=== PATIENT | male | born 1940 | race Caucasian/White ===

== ENCOUNTER 2020-09-15 08:36 | Outpatient (REF) | payer MEDICARE, BC, SELFPAY ==
[2020-09-17 09:02] LABS: HCT 46.8 % (40.0-50.0); HGB 15.2 g/dL (13.5-17.5); MCH 31.7 pg (27.0-33.0); MCHC 32.5 % (32.0-36.0); MCV 97.7 fL (80-95); RBC 4.79 10^6/uL (4.36-5.78); RDW-SD 45.7 fL; WBC 7.86 10^3/uL (4.4-10.8)
[2020-09-17 09:03] LABS: Absolute Basophil Count 0.08 10^3/uL (0.0-0.2); Absolute Eosinophil Count 0.26 10^3/uL (0.0-0.7); Absolute Monocyte Count 0.72 10^3/uL (0.1-0.8); Absolute Neutrophil Count 4.71 10^3/uL (1.2-6.7); Eosinophils % 3.3; Immature Grans % 0.1; MPV 11.8 fL (8.0-11.0); Monocytes % 9.2; Neutrophils % 59.9; Nucleated RBC 0 %; Platelet Count 221 10^3/uL (130-400); RDW 12.7 % (11.8-14.1)
[2020-09-17 09:05] LABS: Abs Immature Grans 0.01 10^3/uL (0.0-0.06); Absolute Lymphocyte Count 2.08 10^3/uL (1.2-3.4); Lymphocytes % 26.5
[2020-09-17 09:06] LABS: RBC Morphology Normal
[2020-09-17 09:07] LABS: Alkaline Phosphatase 96 U/L (46-116); BUN 19 mg/dL (7-18); Bilirubin, Total 1.4 mg/dL (0.2-1.0); CREATININE 1.2 mg/dL (0.70-1.30); Estimated GFR 57.96 (mL/min/1.73m2); Glucose 84 mg/dL (74-106); Sodium 146 mmol/L (136-145); Total Protein 7.8 g/dL (6.4-8.2)
[2020-09-17 09:08] LABS: ALT 17 U/L (16-63); AST 21 U/L (15-37); Anion Gap 10.6 mmol/L (3-11); CO2 28.4 mmol/L (21.0-32.0); Chloride 107 mmol/L (98-107); Potassium 4.2 mmol/L (3.5-5.1); TSH (W/Ref FT4) 1.27 uIU/mL (0.36-3.74); Vitamin B12 101 pg/mL (193-986)
== END 2020-09-15 08:37 | disposition home or self-care (01) ==
LOC: NCHCN 08:36
PROVIDERS: PCP Internal Medicine; Visit Provider Internal Medicine
DX: R63.4 Abnormal weight loss (principal); E78.5 Hyperlipidemia, unspecified; I48.91 Unspecified atrial fibrillation; E53.8 Deficiency of other specified B group vitamins
CPT/HCPCS: 80053; 82607; 84443; 85025

== ENCOUNTER 2021-09-21 17:15 | Outpatient (REF) | payer MEDICARE, BC, SELFPAY ==
--- OUTSIDE RECORDS SUMMARY | 2021-09-21 17:21 | XMS_ITS | Encounter Summary ---
:1940 Author Organization [facility] Address [address] [place] [address] Care Team Providers Name Role Phone Unavailable Primary Care Provider Unavailable Encounter Details Date Type Department Care Team Description 02/14/2004 Hospital Encounter [facility]- Danyelle Villa MD [id number] [place] [address] [id number] [phone] Social History Tobacco Use Types Packs/Day Years Used Date Never Assessed Sex Assigned at Date Recorded Not on file documented as of this encounter Discharge Disposition Disposition Code Departure Means Destination Auto Discharge documented in this encounter Plan of Treatment Not on filedocumented as of this encounter Procedures Procedure Name Priority Date/Time Associated Diagnosis Comme nts CT ABDOMEN, PELVIS Routine 02/14/2004 16:49 Resul ts for this W CONTRAST EDT procedure are i n the results section. documented in this encounter Results CT ABDOMEN, PELVIS W CONTRAST (02/14/2004 16:49 EDT) Anatomical Region Laterality Modality Other Specimen Impressions [facility] - 01/15/2009 16 :34 EDT IMPRESSION: 1. 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 Appearance is unchan ged from December 2002. 2. There is mild circumferential thicken ing of the distal esophagus with a small hiatal hernia. Clinically correlate. 4. Atelectasis at both lung bases. 5. Appearance of the liver, unchanged. 6. Not mentioned above, arteriosclerosis . 7. Left colostomy with changes as noted above. /becky Narrative [facility] - 01/15/2009 16 :34 EDT ABD/PELVIC CT- H/O IMPERFORATE ANUS, BLIND LOOP OF RECTOSIGMOID INSITU R/O INTRALUMINAL COLLECTION, BLIND LOOP ([facility]) CT ABDOMEN & PELVIS: 02/14/04 CLINICAL HISTORY: History of imperforate anus, blind loop of rectosigmoid, follow-up. COMPARISON: 12/14/02. Abdomen and pelvis without rectal contra st TECHNIQUE ABDOMEN: Prior to the examination, the patient wa s given oral contrast. During the intravenous administration of 150 cc of 300 mg% nonionic contrast at a rate of 2 cc/second, helical images were obtained from the domes of the diaphragms to the iliac crests. TECHNIQUE PELVIS: Immediately after the above preparation, axial images were obtained from the iliac crests to the ischial tub erosities. Delayed images were obtained through the pelvis. FINDINGS: There is atelectasis at both lung bases. Ground-glass opacities are also seen at both lung bases. The inferi or heart and pericardium are unremarkable. There is circumferential t hickening of the distal esophagus with a small hiatal hernia. Th e stomach is incompletely distended. No new liver lesions are seen. There is minimal intrahepatic biliary dilatation of the left biliary tree, whi ch is stable. The spleen, pancreas, gallbladder, adrenal glands, a nd kidneys are unremarkable. There is no free fluid, free intraperito miller air, lymphadenopathy, or abscess. A left-sided colostomy is present. Immed iately adjacent to the colostomy, on images 104 through 110, th ere is triangular-shaped soft tissue with an adjacent diverticulum. Th is could represent an undistended segment of bowel. The appear ance is new from the last exam, but is not worrisome for diverticu litis. Again seen is a blind segment of rectosi gmoid colon, which appears adhered to the anterior abdominal wall, as before. There is high attenuation within this colon, in an josué earance which is stable from before and completely unchanged on delay ed images. This suggests that this is remote contrast, probably inspis sated from an old study. I see no evidence of fistula. Some irregul arity of the perirectal fat is stable from before. The remainder of the bowel is unremarkable. There is no evidence of obstruction. A n ormal appendix is seen. There are prostatic calcifications. The urinary bladder is within normal limits. There are mild degenerative changes of t he spine. Procedure Note Kiana Wilder MD - 01/15/2009 ABD/PELVIC CT- H/O IMPERFORATE ANUS, BLI ND LOOP OF RECTOSIGMOID INSITU R/O INTRALUMINAL COLLECTION, BLIND LOOP ([facility]) CT ABDOMEN & PELVIS: 02/14/04 CLINICAL HISTORY: History of imperforate anus, blind loop of rectosigmoid, follow-up. COMPARISON: 12/14/02. Abdomen and pelvis without rectal contra st TECHNIQUE ABDOMEN: Prior to the examination, the patient wa s given oral contrast. During the intravenous administration of 150 cc of 300 mg% nonionic contrast at a rate of 2 cc/second, helical images were obtained from the domes of the diaphragms to the iliac crests. TECHNIQUE PELVIS: Immediately after the above preparation, axial images were obtained from the iliac crests to the ischial tub erosities. Delayed images were obtained through the pelvis. FINDINGS: There is atelectasis at both lung bases. Ground-glass opacities are also seen at both lung bases. The inferi or heart and pericardium are unremarkable. There is circumferential t hickening of the distal esophagus with a small hiatal hernia. Th e stomach is incompletely distended. No new liver lesions are seen. There is minimal intrahepatic biliary dilatation of the left biliary tree, whi ch is stable. The spleen, pancreas, gallbladder, adrenal glands, a nd kidneys are unremarkable. There is no free fluid, free intraperito miller air, lymphadenopathy, or abscess. A left-sided colostomy is present. Immed iately adjacent to the colostomy, on images 104 through 110, th ere is triangular-shaped soft tissue with an adjacent diverticulum. Th is could represent an undistended segment of bowel. The appear ance is new from the last exam, but is not worrisome for diverticu litis. Again seen is a blind segment of rectosi gmoid colon, which appears adhered to the anterior abdominal wall, as before. There is high attenuation within this colon, in an josué earance which is stable from before and completely unchanged on delay ed images. This suggests that this is remote contrast, probably inspis sated from an old study. I see no evidence of fistula. Some irregul arity of the perirectal fat is stable from before. The remainder of the bowel is unremarkable. There is no evidence of obstruction. A n ormal appendix is seen. There are prostatic calcifications. The urinary bladder is within normal limits. There are mild degenerative changes of t he spine. IMPRESSION IMPRESSION: 1. 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 Appearance is unchan ged from December 2002. 2. There is mild circumferential thicken ing of the distal esophagus with a small hiatal hernia. Clinically correlate. 4. Atelectasis at both lung bases. 5. Appearance of the liver, unchanged. 6. Not mentioned above, arteriosclerosis . 7. Left colostomy with changes as noted above. /becky Performing Organization Address City/State/ZIP Code Phon e Number [facility] [address] [place] [address] [facility] [address] [place], [place] [address] documented in this encounter Visit Diagnoses Not on filedocumented in this encounter
--- OUTSIDE RECORDS SUMMARY | 2021-09-21 17:21 | XMS_ITS | Encounter Summary ---
:1940 Author Organization [facility] Address [address] [place] [address] Care Team Providers Name Role Phone London Haywood MD Primary Care Provider Reason for Visit Reason Onset Date Comments Appointment Related 01/10/2018 Encounter Details Date Type Department Care Team Description 01/10/2018 Telephone [facility] Adult Sebastian Oneal, Appointment Related Neurology - Main [place] [facility] [address] [facility] [address] [place], [place] [id number] [place] [address] [phone] (Wo rk) Social History Tobacco Use Types Packs/Day Years Used Date Former Smoker Cigars Quit: 05/16/18 73 Smokeless Tobacco: Never Used Alcohol Use Standard Drinks/Week Comments Yes 0 (1 standard drink = 0.6 oz pure alcoho l) occ beer Alcohol Habits Answer Date Recorded How often do you have a drink containing alcohol? Not asked How many drinks containing alcohol do you have on a typical Not asked day when you are drinking? How often do you have six or more drinks on one occasion? No t asked Comment: occ beer 08/04/2010 Sex Assigned at Date Recorded Not on file documented as of this encounter Miscellaneous Notes Telephone Encounter - Jared Boss - 01/10/2018 1101 EDT Scheduled NPV with Dr Oneal 01/19/18 at 10:00am. Amanda will notify patient. Letter sent. documented in this encounter Plan of Treatment Not on filedocumented as of this encounter Visit Diagnoses Not on filedocumented in this encounter Care Teams Locomotive Crane Operator Relationship Specialty Start Date End Date Adonis Haywood MD PCP - General 04/02/[address] [place] [address] documented as of this encounter
--- OUTSIDE RECORDS SUMMARY | 2021-09-21 17:21 | XMS_ITS | Encounter Summary ---
:1940 Author Organization [facility] Address [address] [place] [address] Care Team Providers Name Role Phone London Haywood MD Primary Care Provider Encounter Details Date Type Department Care Team Description 04/14/2009 Hospital Encounter [facility]- Danyelle Villa MD [address] [id number] [phone] Social History Tobacco Use Types Packs/Day Years Used Date Never Assessed Sex Assigned at Date Recorded Not on file documented as of this encounter Discharge Disposition Disposition Code Departure Means Destination Auto Discharge Home documented in this encounter Plan of Treatment Not on filedocumented as of this encounter Visit Diagnoses Not on filedocumented in this encounter Care Teams Assistive Technology Trainer Relationship Specialty Start Date End Date Adonis Haywood MD PCP - General 04/02/[address] [place] [address] documented as of this encounter
--- OUTSIDE RECORDS SUMMARY | 2021-09-21 17:21 | XMS_ITS | Encounter Summary ---
:1940 Author Organization [facility] Address [address] [place] [address] Care Team Providers Name Role Phone London Haywood MD Primary Care Provider Reason for Visit Reason Comments New Patient Visit Stroke Referral (Routine) - Authorization Not Required Specialty Diagnoses / Procedures Referred By Contact Refer red To Contact Neurology Diagnoses Stroke ([facility]) ([facility]) Gordo Barreto MD [place], Ajay M, SARIAHBS [address] [phone] Fax: Referral ID Status Reason Start Expiration Visits Visits Date Date Requested Authorized [id number] Authorization Not 1 1 Required Encounter Details Date Type Department Care Team Description 02/02/2018 Office Visit [facility] Sebastian [facility]al [facility] - , [facility] ischemic attack) Main [place] [address] [facility] (Primary Dx) [address] [place] [phone] Social History Tobacco Use Types Packs/Day Years [...] on file documented as of this encounter Last Filed Vital Signs Vital Sign Reading Time Taken Comments Blood Pressure 122/80 02/02/2018 0957 EDT Pulse 59 02/02/2018 0957 EDT Temperature - - Respiratory Rate 12 02/02/2018 0957 EDT Oxygen Saturation 99% 02/02/2018 0957 EDT Inhaled Oxygen Concentration - - Weight 78.9 kg (174 lb) 02/02/2018 0957 EDT Height 190.5 cm (6' 3) 02/02/2018 0957 EDT Body Mass Index 21.75 02/02/2018 0957 EDT documented in this encounter Discharge Diagnoses Diagnosis G45.9 Transient cerebral ischemic attack , unspecified-G45.9[ICD-10-CM] documented in this encounter Discharge Disposition Disposition Code Departure Means Destination Auto Discharge documented in this encounter Progress Notes Sebastian Oneal MD - 02/02/2018 1000 EDT [facility] Stroke Program New Patient Consultation Patient Name: Reece Garcia : 1940 Age: 77 y.o. Primary Care Provider: Adonis Haywood Date of Service: 02/02/2018 Chief Complaint - Chief Complaint Patient presents with ??? New Patient Visit Stroke Dear Dr.Brendan oLndon Haywood I had the pleasure of seeing Reece Garcia today in the stroke prevention clinic for your referral regarding evaluation of TIA's and need for further intervention of the left MCA narrowing. As you know he is a 77 y.o. man with history of Xeralto for A.fib (approximately in 2012), was initially placedon warfarin and later changed to Xeralto given amount of blood work needed with warfarin. He is here along with his Kaylin, in 2012 he was talking to somebody on the phone and had a funny feeling, may have had trouble with words, was taken to [facility]. At that time he was noted to be in A.fib, has seen . He had MRI of the brain apparently showed few embolic appearing strokes, he did not have any focal symptoms at that time. He describes ' as one side of the head felt different. Word finding difficulty may have lasted an hour. He had second episode, may be a year or two later when he was in the meeting chairing the education board, he felt different wand stood up andwas unable to bring the words out, high school librarian called the ambulance. Episode lasted about an hour or so. It has been long unable to clearly recall the entire episode. He describes every once in a while he describes a feeling come over me, then feels my voice seems different, he lies flat and symptoms go away. Sometimes, he feels that has a gas in the system that's out through the colostomy and then it goes away. Denies any tingling and number. At this time he has trouble getting the words out and then goes away within 5 or 10 minutes. Now its happening once a day or so. It's more towards the supper time or latter in the day. Reports no major memory issues, always reading, driving no issues, no issues with directions, no specific memory issues. Risk Factors for stroke: A.fib Review of Systems: General: no fever, no chills, appetite not decreased, no fatigue, no insomnia and no recent weight change. ENT: no earache, no tinnitus, no difficulty swallowing. Eyes: no blurred vision, no double vision, no loss of vision, no partial visual field loss, no lightsensitivity . Cardiovascular: no chest pain, no palpitations, no fainting, no shortness of breath . Respiratory: no cough, no wheezing. Skin: no unexplained rashes GI: no nausea, no vomiting, no diarrhea, no change in bowel habits, no constipation, no abdominal pain, no bloody or black stools. : no painful urination, no blood in urine, no change in urinary frequency, no loss of bladder control. Musculoskeletal: no muscle cramps, no joint stiffness, no muscle weakness other than what is described above. Neurological: no headache, no weakness other than what is described above, no numbness other than what is described above, Psychiatric: no depression, no anxiety, no paranoid ideations, no hallucinations, no panic attacks, no irritability. Endocrine: not intolerant to cold, not intolerant to heat, Heme/Lymphatic: no tendency for easy bruising, no bleeding Past Medical History: Diagnosis Date ??? GERD (gastroesophageal reflux disease) Past Surgical History: Past Surgical History: Procedure Laterality Date ??? APPENDECTOMY ??? BLADDER SURGERY surgery at 8 yrs old ??? COLON SURGERY colostomy dosen't use bag long story Allergies: No Known Allergies Social history: Social History Social History ??? Marital status: Spouse name: N/A ??? Number of children: N/A ??? Years of education: N/A Occupational History ??? [employer] Social History Main Topics ??? Smoking status: Former Smoker Types: Cigars Quit date: 05/16/1974 ??? Smokeless tobacco: Never Used ??? Alcohol use Yes Comment: occ beer ??? Drug use: No ??? Sexual activity: Not on file Other Topics Concern ??? Not on file Social History Narrative Family history: Family History Problem Relation Age of Onset ??? Allergic Rhinitis Neg Hx ??? Migraines Neg Hx ??? Thyroid Disease Neg Hx Reports heart problems in the family, with heart attack. Physical Examination: Vitals: BP 122/80 (BP Cuff Location: Right arm, Patient Position: Sitting, BP Cuff Sizes: Adult, regular) Pulse 59 Resp 12 Ht (!) 190.5 cm (75) Wt 78.9 kg (174 lb) SpO2 99% BMI 21.75 kg/m2 General appearance: alert, cooperative, no distress Head: Normocephalic, without obvious abnormality, atraumatic Eyes: conjunctivae/corneas clear. PERRL, EOM's intact. Throat/Mouth: lips, mucosa, and tongue normal Neck: supple, symmetrical, trachea midline, no carotid bruit Lungs: clear to auscultation bilaterally Heart: regular rate and rhythm, S1, S2 normal, no murmur Abdomen: soft, non-tender; bowel sounds normal; no masses, no organomegaly Extremities: extremities warm, atraumatic, no cyanosis or edema Neurological Examination: Mental status:. The patient's orientation, memory, attention, language and fund of knowledge were normal. Cranial nerve II: Visual marks were with in normal limits to confrontation. Cranial nerves III, IV, and : the oculomotor, trochlear and abducens nerve were intact. Cranial nerve V: facial sensation was normal to light touch and temperature. Masticatory muscle bulkand strength was normal. Cranial nerve VII: no facial nerve palsy was noted. Cranial nerve VIII: hearing was grossly intact to finger run at 6 inches bilaterally. Cranial nerves IX and X: there was normal movement of the soft palate. Cranial nerve XI: shoulder shrug was intact bilaterally. Cranial nerve XII: there was no tongue deviation with protrusion. Motor Strength & Tone: Strength was 5/5 in upper and lower extremities, both proximally and distally. Patient exhibits normal motor tone. Muscle bulk was normal throughout. Involuntary Movements: No involuntary movements were seen. Sensory: Light touch and temperature sensation was within normal limits throughout. Reflexes: Biceps: right 2+, left 2+. Triceps: right 2+, left 2+. Brachioradialis: right 2+, left 2+. Patella: right 2+, left 2+. Ankle Jerk: right 1+, left 1+. Plantar response was flexor bilaterally. Coordination: Coordination was normal, including finger to nose and heel-bailey testing. Gait: The gait and station were normal. Romberg was negative. Diagnostic and Imaging Data: 1. Brain imagin. CTA Head and Neck: 3. Echocardiogram: EF LA size: PFO: 4. LDL ASSESSMENT: RECOMMENDATIONS: 1. Continue Aspirin 81 mg daily. 2. Continue high dose statin. 3. Target HbA1c is less than 6.5, strict glycemic control. 4. Target LDL is less than 70 mg/dl. 5. Target BP goal is less than 130/80 mm of Hg. 6. More than 45 minutes of this 60 minute face to face visit was spent discussing stroke symptoms, etiology, prevention, and management of stroke, including the importance of risk factor modification including optimal management of hypertension, DM, cholesterol, smoking cessation, healthy diet and exercise, counseling and coordination of care as detailed above. Thank you for involving me in care of Reece Garcia. Please feel free to contact the office with any questions or concerns. Sebastian Oneal M.D. Attending, Stroke Program [facility] Incomplete documented in this encounter Plan of Treatment Not on filedocumented as of this encounter Visit Diagnoses Diagnosis TIA (transient ischemic attack) - Primar y Unspecified transient cerebral ischemia documented in this encounter Historical Medications This list may reflect changes made after this encounter. Medication Sig Dispensed Refills Start Date End Date atorvastatin (LIPITOR) 20 Take 20 mg by mouth 0 mg tabletIndications: daily. taking 1/2 pill each day added in this encounter Care Teams Paper Finisher Relationship Specialty Start Date End Date Adonis Haywood MD PCP - General 04/02/[address] [place] [address] documented as of this encounter
--- OUTSIDE RECORDS SUMMARY | 2021-09-21 17:21 | XMS_ITS | Encounter Summary ---
:1940 Author Organization [facility] Address [address] [place] [address] Care Team Providers Name Role Phone London Haywood MD Primary Care Provider Reason for Visit Reason Comments Atrial Fibrillation Encounter Details Date Type Department Care Team Description 06/18/2013 Office Visit [facility] [place] Griffin Hair, Atrial fibrillation Cardiology - Jairo HOWARD ([facility]) (Primary Dx) [address] [place], [place] [address] [place] [address] [place] [address] Social History Tobacco Use Types Packs/Day Years [...] Sign Reading Time Taken Comments Blood Pressure 120/76 06/18/2013 1610 EST Pulse 76 06/18/2013 1610 EST Temperature - - Respiratory Rate - - Oxygen Saturation - - Inhaled Oxygen Concentration - - Weight 95.3 kg (210 lb) 06/18/2013 1610 EST Height 190.5 cm (6' 3) 06/18/2013 1610 EST Body Mass Index 26.25 06/18/2013 1610 EST documented in this encounter Discharge Diagnoses Diagnosis 427.31 ATRIAL FIBRILLATION[ICD-9-CM] documented in this encounter Discharge Disposition Disposition Code Departure Means Destination Auto Discharge documented in this encounter Progress Notes Griffin Hair MD - 06/18/2013 1700 EST Subjective: Patient ID: Reece Garcia is an 72 y.o. male. Chief Complaint Patient presents with ??? Atrial Fibrillation HPI Mr. Garcia is a pleasant 72 year old man who developed an unusual sensation last summer. He eventually went to the [facility] ED and was found to be in AF. He was told he had a small stroke. He was placed on anticoagulants. An echocardiogram was performed which showed preserved LV function and no significant valvular abnormalities. Because of the patient's body habitus he was recommended tohave a diagnostic polysomnogram. He decided to not pursue that. Mr. Garcia was seen in consultation by Dr. Jeevan Monsalve. Dr. Monsalve recommended that Mr. Garcia undergo a diagnostic polysomnogram and consider an elective cardioversion. Mr. Garcia asked for a second opinion and is now referred to the office. Mr. Garcia has no history of valvular heart disease, hypertension, diabetes, congestive heart failure or alcohol over use. He does not have known disordered breathing during sleep. He claims not to suffer from daytime hypersomnolence. Family history is negative for premature coronary disease. A brother does have AF. Patient Active Problem List Diagnosis ??? Gastroesophageal reflux disease Past Medical History Diagnosis Date ??? GERD (gastroesophageal reflux disease) Past Surgical History Procedure Laterality Date ??? Appendectomy ??? Bladder surgery surgery at 8 yrs old ??? Colon surgery colostomy dosen't use bag long story Family History Problem Relation Age of Onset ??? Allergic Rhinitis Neg Hx ??? Migraines Neg Hx ??? Thyroid Disease Neg Hx Social History Social History ??? Marital Status: Spouse Name: N/A Number of Children: N/A ??? Years of Education: N/A Occupational History ??? [employer] Social History Main Topics ??? Smoking status: Former Smoker Types: Cigars Quit date: 05/16/1974 ??? Smokeless tobacco: Never Used ??? Alcohol Use: Yes Comment: occ beer ??? Drug Use: No ??? Sexually Active: Not on file Other Topics Concern ??? Not on file Social History Narrative ??? No narrative on file No current outpatient prescriptions on file prior to visit. No current facility-administered medications on file prior to visit. No Known Allergies Review of Systems Constitutional: Negative for weight loss and malaise/fatigue. Eyes: Negative for blurred vision and double vision. Respiratory: Negative for cough, hemoptysis, shortness of breath and wheezing. Cardiovascular: Negative for chest pain, palpitations, orthopnea, claudication, leg swelling and PND. Gastrointestinal: Negative for heartburn, nausea, vomiting, abdominal pain, diarrhea and blood in stool. Colostomy in the left lower quadrant Genitourinary: Negative for dysuria, frequency and hematuria. Musculoskeletal: Positive for joint pain. Negative for myalgias and falls. Skin: Negative for rash. Neurological: Negative for weakness and headaches. Grossly normal neurologic exam for coordination and strength. Endo/Heme/Allergies: Does not bruise/bleed easily. - See HPI Objective: BP 120/76 Pulse 76 Ht 190.5 cm (75) Wt 95.255 kg (210 lb) BMI 26.25 kg/m2 Physical Exam Constitutional: He is oriented to person, place, and time. He appears well- developed and well-nourished. HENT: Head: Normocephalic and atraumatic. Eyes: Conjunctivae are normal. Pupils are equal, round, and reactive to light. Neck: Normal range of motion. Neck supple. No JVD present. No thyromegaly present. Cardiovascular: Normal rate, S1 normal, S2 normal and intact distal pulses. An irregularly irregular rhythm present. Pulmonary/Chest: Effort normal and breath sounds normal. Abdominal: Soft. Bowel sounds are normal. Colostomy in left lower quadrant (he does not require a pouch as he can feel the urge to move his bowels and goes to the bathroom). Musculoskeletal: Normal range of motion. He exhibits no edema. Neurological: He is alert and oriented to person, place, and time. Grossly normal neurologic exam Skin: Skin is warm and dry. Psychiatric: His behavior is normal. Records from Drs. Haywood and Gricel: reviewed. Assessment/Plan: In summary, Mr. Garcia has minimally symptomatic AF. His AF has been observed in the setting of normal LV systolic function and no significant valvular abnormalities. His ventricular rate is well controlled off drug therapy. He has been anticoagulated. I diagnostic polysomnogram was recommended but the patient did not follow through. I would agree with all of the recommendations and care that Mr. Garcia has received to date. Mr. Garcia has atrial fibrillation. By his account he had a small stroke. On that basis I would recommend lifelong anticoagulation. Rivaroxaban is a reasonable choice for long-term anticoagulation. His CHADS-VAS score is 3. I have recommended to Mr. Garcia that he undergo an elective cardioversion. If he feels better after her cardioversion then I would pursue a strategy of rhythm control. If on the other hand he feels exactly the same then I would not attempt to reestablish sinus rhythm and pursue a strategy of rate control only. Plans: Continue Rivaroxaban indefinitely I have recommended elective cardioversion when convenient for the patient. He will think about It an probably pursue at [facility]. Followup with Drs. Haywood and Gricel. documented in this encounter Plan of Treatment Not on filedocumented as of this encounter Visit Diagnoses Diagnosis Atrial fibrillation (HCC-CMS) (HCC) - Pr imary Atrial fibrillation documented in this encounter Discontinued Medications Medication Sig Discontinue Reason Start Date End Date omeprazole (PRILOSEC) 20 Take 20 mg by mouth Error 06/18/2013 mg capsule daily. documented as of this encounter Historical Medications This list may reflect changes made after this encounter. Medication Sig Dispensed Refills Start Date End Date loratadine (CLARITIN) 10 mg Take 10 mg by mouth 0 tablet daily. Acetaminophen (TYLENOL) 325 Take 650 mg by mouth 0 mg tablet every 4 hours as needed for Pain. rivaroxaban (XARELTO) 20 mg Take 20 mg by mouth 0 tablet tablet daily with dinner. added in this encounter Care Teams Electronics Lead Relationship Specialty Start Date End Date Adonis Haywood MD PCP - General 04/02/[address] [place] [address] documented as of this encounter
--- OUTSIDE RECORDS SUMMARY | 2021-09-21 17:21 | XMS_ITS | Clinical Summary ---
:1940 Author Organization [facility] Address [address] [place] [address] Care Team Providers Name Role Phone London Haywood MD Primary Care Provider Allergies No known active allergies Medications Medication Sig Dispensed Refills Start Date End Date Status rivaroxaban (XARELTO) 20 Take 20 mg by 0 Active mg tablet tablet mouth daily with dinner. Acetaminophen (TYLENOL) Take 650 mg by 0 Active 325 mg tablet mouth every 4 hours as needed for Pain. loratadine (CLARITIN) 10 Take 10 mg by 0 Active mg tablet mouth daily. atorvastatin (LIPITOR) Take 20 mg by 0 Active 20 mg tabletIndications: mouth daily. taking 1/2 pill each day Active Problems Problem Noted Date Atrial fibrillation ([facility]) 06/18/2013 Gastroesophageal reflux disease Surgical History Surgery Date Site/Laterality Comments APPENDECTOMY BLADDER SURGERY surgery at 8 yr s old COLON SURGERY colostomy dosen' t use bag long story Medical History Medical History Date Comments GERD (gastroesophageal reflux disease) Family History Medical History Relation Name Comments Allergic Rhinitis Neg Hx Migraines Neg Hx Thyroid Disease Neg Hx Social History Tobacco Use Types Packs/Day Years [...] Assigned at Date Recorded Not on file Last Filed Vital Signs Vital Sign Reading Time Taken Comments Blood Pressure 122/80 02/02/2018 0957 EDT Pulse 59 02/02/2018 0957 EDT Temperature 36.3 ??C (97.3 ??F) 08/04/2010 0822 EDT Respiratory Rate 12 02/02/201857 EDT Oxygen Saturation 99% 02/02/2018 0957 EDT Inhaled Oxygen Concentration - - Weight 78.9 kg (174 lb) 02/02/2018956 EDT Height 190.5 cm (6' 3) 02/02/2018 09 EDT Body Mass Index 21.75 02/02/2018 0957 EDT Plan of Treatment Health Maintenance Due Date Last Done Comments Fall Risk Screening 09/11/2003 Care Teams Stitcher Standard Machine Relationship Specialty Start Date End Date Adonis Haywood MD PCP - General 04/02/[address] [place] [address]
--- OUTSIDE RECORDS SUMMARY | 2021-09-21 17:21 | XMS_ITS | Encounter Summary ---
:1940 Author Organization [facility] Address [address] [place] [address] Care Team Providers Name Role Phone London Haywood MD Primary Care Provider Reason for Visit Reason Comments Pharyngitis Reflux Encounter Details Date Type Department Care Team Description 09/22/[address] [facility] Zeke Mars GERD (gastroesophageal reflux disease); ENT- [facility] MD Candelario LPRD (laryngopharyngeal reflux disease) [address] [facility] [address] [place] [address] [place], [place] [phone] Social History Tobacco Use Types Packs/Day Years Used Date Former Smoker Cigars Smokeless Tobacco: Never Used Alcohol Use Standard [...] on file documented as of this encounter Progress Notes Zeke Mars MD - 09/22/2010 1244 EDT Subjective: Patient ID: Reece Garcia is an 70 y.o. male. Chief Complaint Patient presents with ??? Pharyngitis Reflux HPIThis office note has been dictated. Patient Active Problem List Diagnoses Code ??? GERD (gastroesophageal reflux disease) 530.81S Past Medical History Diagnosis Date ??? GERD (gastroesophageal reflux disease) Past Surgical History Procedure Date ??? Appendectomy ??? Bladder surgery surgery [...] ??? Smoking status: Former Smoker Types: Cigars ??? Smokeless tobacco: Never Used ??? Alcohol Use: Yes occ beer ??? Drug Use: No ??? Sexually Active: Not on file Other Topics Concern ??? Not on file Social History Narrative ??? No narrative on file No current outpatient prescriptions on file prior to encounter. No Known Allergies Review of Systems Constitutional: Negative for fever, chills, weight loss and malaise/fatigue. HENT: Positive for hearing loss and sore throat. Negative for ear pain, congestion and tinnitus. Eyes: Negative for blurred vision, double vision and photophobia. Respiratory: Positive for cough and shortness of breath (on exertion). Negative for hemoptysis and wheezing. Cardiovascular: Positive for claudication. Negative for chest pain, palpitations and leg swelling. Gastrointestinal: Positive for heartburn. Musculoskeletal: Positive for myalgias and joint pain. Skin: Negative for rash. Neurological: Negative for sensory change, focal weakness and headaches. Endo/Heme/Allergies: Negative for environmental allergies. Does not bruise/bleed easily. - See HPI Objective: There were no vitals taken for this visit. Physical Exam Assessment: Plan: Reece was seen today for pharyngitis. Diagnoses and associated orders for this visit: Gerd (gastroesophageal reflux disease) Lprd (laryngopharyngeal reflux disease) Other Orders - omeprazole (PRILOSEC) 20 mg capsule; Take 20 mg by mouth daily. documented in this encounter Consult Notes Zeke Mars MD - 10/05/2010 1701 EDT DIVISION OF OTOLARYNGOLOGY CONSULTATION - 09/22/2010 HISTORY OF PRESENT ILLNESS: A 70-year-old white male assessed in consultation at the request of Dr Rian Villa for chronic throat irritation with excess throat mucus of approximately 5 to 6 months duration. He reports associated sore throat, hoarseness, occasional catching of food/dysphagia and a globus sensation. He is also symptomatic of bienvenido reflux in the back of his throat. Esophagogastroduodenoscopy procedure of 08/04/2010, per Dr Villa, is reported within normal limits with the exception of edema and inflammation at the base of the tongue. Additionally, gastric polyps. 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 He was placed on omeprazole [address] Villa without improvement after 2 months. OBJECTIVE: A 70-year-old gentleman, appears his stated age. He is not in any acute distress. He does have a mild raspy, nonbreathy voice. Facial movement is symmetric. Both external ears, ear canals and tympanic membranes are clear with only mild cerumen on the right side. Oral cavity reveals upper dentures. Incomplete lower dentition. Mucous membranes are healthy. He has healthy 1+ tonsils. Nasopharynx was clear without excess postnasal drainage. Neck is clear without palpable lymphadenopathy, salivary gland hypertrophy, thyroid goiter or other neck masses. Trachea is midline. External nose is distorted to the right. Anterior rhinoscopy reveals a severely deviated nasal septum with 95% obstruction on the left side. Right side widely patent. There was one moderate-sized greenish crust retained mid third of the nasal cavity. PROCEDURE: Flexible fiberoptic nasal endoscopy performed to evaluate the upper airway for chronic hoarseness. He is sprayed with topical cophenylcaine spray followed by insertion of cotton-soaked pledget for 10 minutes. The flexible scope was passed through the right naris without difficulty. The nasopharynx was patent. The distal pharynx was clear including a normal tongue base. The larynx revealed moderate posterior laryngeal edema with mild erythema. Vocal cords were mildly edematous and symmetrically mobile. There were no isolated lesions including polyps or nodules. There was no pooling of secretions or other abnormalities. IMPRESSION: LPR with a history of a hiatal hernia and bienvenido symptomatic reflux as the most likely etiology for this gentleman's aggravating symptoms. He has failed a 2-month trial of omeprazole 20 mg daily. PLAN: I contacted Dr Villa regarding any further thoughts he may have on treating this gentleman and we have elected to proceed as follows: 1. Omeprazole 20 mg twice daily for minimum of 2 months. 2. I suggested elevating head of bed with 4-inch blocks, which he declined. 3. Consultation per Dr Villa with Dr Isaiah Maravilla for further evaluation. Contingency plan may include consideration for a Patsy fundoplication. He is discharged with no planned followup at this time. I appreciate the opportunity to participate in this patient's care. Please let me know if you have any further questions or concerns. Electronically Signed by Zeke Mars MD 10/05/2010 17:01 Zeke Mars MD - Zeke Mars MD - Job ID: SM Doc ID: [id number] Ext Doc ID: [id number] cc: MD Rian Ortiz MD Alex John, MD documented in this encounter Plan of Treatment Not on filedocumented as of this encounter Visit Diagnoses Diagnosis GERD (gastroesophageal reflux disease) Esophageal reflux LPRD (laryngopharyngeal reflux disease) Other diseases of larynx documented in this encounter Historical Medications This list may reflect changes made after this encounter. Medication Sig Dispensed Refills Start Date End Date omeprazole (PRILOSEC) 20 Take 20 mg by mouth 0 06/18/2013 mg capsule daily. added in this encounter Care Teams Lens Engraver Relationship Specialty Start Date End Date Adonis Haywood MD PCP - General 04/02/[address] [place] [address] documented as of this encounter
--- OUTSIDE RECORDS SUMMARY | 2021-09-21 17:21 | XMS_ITS | Encounter Summary ---
:1940 Author Organization [facility] Address [address] [place] [address] Care Team Providers Name Role Phone London Haywood MD Primary Care Provider Encounter Details Date Type Department Care Team Description 04/02/2009 Hospital Encounter [facility]- Danyelle Villa MD [address] [id number] [phone] Social History Tobacco Use Types Packs/Day Years Used Date Never Assessed Sex Assigned at Date Recorded Not on file documented as of this encounter Discharge Disposition Disposition Code Departure Means Destination Home or Self Custodial documented in this encounter Plan of Treatment Not on filedocumented as of this encounter Procedures Procedure Name Priority Date/Time Associated Diagnosis Comme nts CREATININE Routine 04/02/2009 10:30 EST Results for this procedure are i n the results section . documented in this encounter Results CREATININE (04/02/2009 10:30 EST) Creatinine 1.05 0.7 - 1.5 [facility] mg/dl GFR, Calculated >60Comment: ml/min/1.73m2 [facility] Performed at [facility], [place], [place] Specimen Blood specimen (specimen) Performing Organization Address City/State/ZIP Code Phon e Number [facility] [address] [place] [address] SERVICES [facility] [address] [place] [address] documented in this encounter Visit Diagnoses Not on filedocumented in this encounter Care Teams Reliability Specialist Relationship Specialty Start Date End Date Adonis Haywood MD PCP - General 04/02/[address] [place] [address] documented as of this encounter
--- OUTSIDE RECORDS SUMMARY | 2021-09-21 17:21 | XMS_ITS | Encounter Summary ---
:1940 Author Organization [facility] Address [address] [place] [address] Care Team Providers Name Role Phone Unavailable Primary Care Provider Unavailable Encounter Details Date Type Department Care Team Description 12/14/2002 Hospital Encounter [facility]- Danyelle Villa MD [address] [id number] [phone] Social History Tobacco Use Types Packs/Day Years Used Date Never Assessed Sex Assigned at Date Recorded Not on file documented as of this encounter Discharge Disposition Disposition Code Departure Means Destination Auto Discharge documented in this encounter Plan of Treatment Not on filedocumented as of this encounter Procedures Procedure Name Priority Date/Time Associated Diagnosis Comme nts CT ABDOMEN, PELVIS Routine 12/14/2002 9:36 Resul ts for this W CONTRAST EDT procedure are i n the results section. documented in this encounter Results CT ABDOMEN, PELVIS W CONTRAST (12/14/2002 9:36 EDT) Anatomical Region Laterality Modality Other Specimen Impressions [facility] - 01/28/2009 5 :58 EDT IMPRESSION: Left lower quadrant colostomy. 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 This is not dilated at this time but however, fistula formation between this loop and the small bowel cannot be excluded. D: 12-14-02 T: 12-17-02 /am Narrative [facility] - 01/28/2009 5 :58 EDT ABD/PELVIC CT, H/O IMPERFORATE ANUS,BLIND LOOP OF RECTOSIGMOID IN SITU R/O INTRALUMINAL COLLECTION, BLIND LOOP 12-14-02 CT OF THE ABDOMEN AND PELVIS (094 0 hrs): CLINICAL HISTORY: Imperforate anus, blin d loop of rectosigmoid insitu, rule out intraluminal collection , blind loop. TECHNIQUE: After the administration of o ral contrast and during bolus administration of IV nonionic contrast, 3 mm helical images were obtained of the abdomen and pelvis. FINDINGS: As per given history there is a nondilated segment of rectosigmoid colon which traverses anter iorly and appears tethered to the anterior abdominal wall at the site of an anterior abdominal wall scar. There is high density material wit hin this blind loop of colon, perhaps related to prior contrast proced ure. However, I cannot exclude a fistula formation between this blind loop and the small bowel. There is a colostomy in the left lower q uadrant involving the inferior aspect of the descending colon. There is no evidence of obstruction or ischemia. A normal amount of stool is seen in the distribution of the colon. There is atelectasis at the lung bases. The liver, spleen, pancreas, adrenal glands, kidneys and gallbladder are unremarkable. There is no free fluid in the abdomen no r in the pelvis. There are no masses or pathologically enlarged lymph nodes. Degenerative changes are present in the lower lumbar and upper sacral spine. Procedure Note Dave Avalos MD - 01/28/2009 ABD/PELVIC CT, H/O IMPERFORATE ANUS,BLIN D LOOP OF RECTOSIGMOID IN SITU R/O INTRALUMINAL COLLECTION, BLIND LOOP 12-14-02 CT OF THE ABDOMEN AND PELVIS (094 0 hrs): CLINICAL HISTORY: Imperforate anus, blin d loop of rectosigmoid insitu, rule out intraluminal collection , blind loop. TECHNIQUE: After the administration of o ral contrast and during bolus administration of IV nonionic contrast, 3 mm helical images were obtained of the abdomen and pelvis. FINDINGS: As per given history there is a nondilated segment of rectosigmoid colon which traverses anter iorly and appears tethered to the anterior abdominal wall at the site of an anterior abdominal wall scar. There is high density material wit hin this blind loop of colon, perhaps related to prior contrast proced ure. However, I cannot exclude a fistula formation between this blind loop and the small bowel. There is a colostomy in the left lower q uadrant involving the inferior aspect of the descending colon. There is no evidence of obstruction or ischemia. A normal amount of stool is seen in the distribution of the colon. There is atelectasis at the lung bases. The liver, spleen, pancreas, adrenal glands, kidneys and gallbladder are unremarkable. There is no free fluid in the abdomen no r in the pelvis. There are no masses or pathologically enlarged lymph nodes. Degenerative changes are present in the lower lumbar and upper sacral spine. IMPRESSION IMPRESSION: Left lower quadrant colostomy. 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 This is not dilated at this time but however, fistula formation between this loop and the small bowel cannot be excluded. D: 12-14-02 T: 12-17-02 /am Performing Organization Address City/State/ZIP Code Phon e Number [facility] [address] [facility] [place] [address] [facility] [address] [place], [place] [address] documented in this encounter Visit Diagnoses Not on filedocumented in this encounter
--- OUTSIDE RECORDS SUMMARY | 2021-09-21 17:21 | XMS_ITS | Encounter Summary ---
:1940 Author Organization [facility] Address [address] [place] [address] Care Team Providers Name Role Phone London Uriostegui MD Primary Care Provider Encounter Details Date Type Department Care Team Description 08/04/[address] [facility] Mirtha Villa MD [id number] [place] [address] [phone] (Wo rk) Social History Tobacco Use Types Packs/Day Years Used Date Former Smoker Alcohol Use Standard Drinks/Week Comments Yes 0 [...] on file documented as of this encounter Plan of Treatment Not on filedocumented as of this encounter Procedures Procedure Name Priority Date/Time Associated Diagnosis Comme nts SURGICAL PATHOLOGY Routine 08/04/2010 0:00 Resul ts for this EDT procedure are i n the results section. documented in this encounter Results SURGICAL PATHOLOGY (08/04/2010 0:00 EDT) Pathology Report: SURGICAL PATHOLOGY REPORT ? PAMELA HANNA Reports generated via electr onic interface contain original data; ? LAB however they are lacking the format of the original report. ? Caution should be taken when reading/interpreting unformatted reports. ? Name: ? TERESA GARCIA ? Accession #: ? [id number] ? : ? 1940 (Age: 69) ??M ? Collec t Date: ? 08/04/2010 ? Location: ? [facility] ? Receive Date: ? 08/04/2010 ? Provider: MIRTHA VILLA MD ? Copy to: ELIDA N URIOSTEGUI M D ? Final Pathologic Diagnosis: ? Stomach, polyp, biops y: ? - Fundic gland polyp. ? Document reviewed and electr onically signed by: ? YUAN KELLEY MD ? Report ??Date: 08/05/2010 17 :20 ? By the signature above, the attending physician certifies that he/she has ? personally conducted a gross and/or microscopic examination of the described ? specimens and rendered or co nfirmed the above diagnosis. ? Specimen(s) Received: ? Stomach polyp ? Clinical History: ? GERD ? Gross Description: ? Received in formalin labelled Jose, Teresa and stomach polyp is a ?? lemon-pink, 0.3 x 0.3 x 0.3 cm soft tissue fragment. ??The specimen is entirely ? submitted in one cassette. ( Bob Zelaya/[facility] ? End of Report ? Specimen Performing Organization Address City/State/[facility] Code Phon e Number [facility] [address] [place] [address] SERVICES [facility] [address] [place] [address] documented in this encounter Visit Diagnoses Not on filedocumented in this encounter Care Teams Exercise Specialist Relationship Specialty Start Date End Date Elida Uriostegui MD PCP - General 04/02/09 [address] [place] [address] documented as of this encounter
--- OUTSIDE RECORDS SUMMARY | 2021-09-21 17:21 | XMS_ITS | Encounter Summary ---
:1940 Author Organization [facility] Address [address] [place] [address] Care Team Providers Name Role Phone Unavailable Primary Care Provider Unavailable Encounter Details Date Type Department Care Team Description 07/02/2005 Hospital Encounter [facility] - Rian Villa MD [address] [id number] [phone] Social History Tobacco Use Types Packs/Day Years Used Date Never Assessed Sex Assigned at Date Recorded Not on file documented as of this encounter Discharge Disposition Disposition Code Departure Means Destination Auto Discharge documented in this encounter Plan of Treatment Not on filedocumented as of this encounter Visit Diagnoses Not on filedocumented in this encounter
--- OUTSIDE RECORDS SUMMARY | 2021-09-21 17:21 | XMS_ITS | Encounter Summary ---
:1940 Author Organization [facility] Address [address] [place] [address] Care Team Providers Name Role Phone London Haywood MD Primary Care Provider Encounter Details Date Type Department Care Team Description 05/04/2010 Hospital Encounter [facility]- Danyelle Villa MD [address] [id number] [phone] Social History Tobacco Use Types Packs/Day Years Used Date Never Assessed Sex Assigned at Date Recorded Not on file documented as of this encounter Discharge Disposition Disposition Code Departure Means Destination Auto Discharge Home documented in this encounter Plan of Treatment Not on filedocumented as of this encounter Visit Diagnoses Not on filedocumented in this encounter Care Teams Blocking Machine Operator Second Relationship Specialty Start Date End Date Adonis Haywood MD PCP - General 04/02/[address] [place] [address] documented as of this encounter
--- OUTSIDE RECORDS SUMMARY | 2021-09-21 17:21 | XMS_ITS | Encounter Summary ---
:1940 Author Organization [facility] Address [address] [place] [address] Care Team Providers Name Role Phone London Haywood MD Primary Care Provider Reason for Visit Reason Onset Date Comments Medications Refill 06/13/2009 Encounter Details Date Type Department Care Team Description 06/13/2009 Refill [facility] Adult Héctor Maurer MD Medications Refill Primary Care - [address] [place] [address] [place] [phone] (Wo rk) Social History Tobacco Use Types Packs/Day Years Used Date Never Assessed Sex Assigned at Date Recorded Not on file documented as of this encounter Miscellaneous Notes Telephone Encounter - Lorena Noble RN - 06/16/2009 8412 EST Error documented in this encounter Plan of Treatment Not on filedocumented as of this encounter Visit Diagnoses Not on filedocumented in this encounter Care Teams Milk Runner Relationship Specialty Start Date End Date Adonis Haywood MD PCP - General 04/02/[address] [place], [place] [address] documented as of this encounter
--- OUTSIDE RECORDS SUMMARY | 2021-09-21 17:21 | XMS_ITS | Encounter Summary ---
:1940 Author Organization [facility] Address [address] [place] [address] Care Team Providers Name Role Phone London Haywood MD Primary Care Provider Reason for Visit Reason Comments Follow-up Waiting for the Omeprazole t o be called in, patient is not happy with anyone in this office. Also stated that his PCP never received a office note. Encounter Details Date Type Department Care Team Description 11/27/2010 Telephone [facility] ENT- Zeke Mars-up (Waiting for [facility] MD Candelario the Omeprazole to be [address] [facility] [address] called in, [place] [address] [place] not happy with anyone in [phone] this office. Also stated [phone] that his PCP luana mac (Work) received a office note.) Social History Tobacco Use Types Packs/Day Years [...] this encounter Miscellaneous Notes Telephone Encounter - Reece Walker RN - 11/27/[address] Mars plan was to have Dr Villa script omeprazole BID for minimum of two months, have aconsultation with Dr Isaiah Maravilla and follow up with Dr Villa. Called Dr Villa's office and spoke with nurse who will have that set up, patient had contacted them also. documented in this encounter Plan of Treatment Not on filedocumented as of this encounter Visit Diagnoses Not on filedocumented in this encounter Care Teams Retail Sales Manager Relationship Specialty Start Date End Date Adonis Haywood MD PCP - General 04/02/[address] [place] [address] documented as of this encounter
--- OUTSIDE RECORDS SUMMARY | 2021-09-21 17:21 | XMS_ITS | Encounter Summary ---
:1940 Author Organization [facility] Address [address] [place] [address] Care Team Providers Name Role Phone London Haywood MD Primary Care Provider Encounter Details Date Type Department Care Team Description 02/02/2018 Results Only Imaging [facility]- Unknown, [facility] ProviderMD [phone] Social History Tobacco Use Types Packs/Day Years [...] as of this encounter Plan of Treatment Pending Results Name Type Priority Associated Diagnoses Date/Ti me OUTSIDE IMAGES - MR NEURO Imaging 10:44 EDT OUTSIDE IMAGES - MR NEURO Imaging 10:44 EDT documented as of this encounter Visit Diagnoses Not on filedocumented in this encounter Care Teams Service Technician Relationship Specialty Start Date End Date Adonis Haywood MD PCP - General 04/02/09 [address] [place] [address] documented as of this encounter
--- OUTSIDE RECORDS SUMMARY | 2021-09-21 17:21 | XMS_ITS | Encounter Summary ---
:[address] [facility] Address [address] [place] [address] Care Team Providers Name Role Phone London Haywood MD Primary Care Provider Encounter Details Date Type Department Care Team Description 08/04/2010 Hospital Encounter [facility] Maria Luz Villa MD Endoscopy Outpatient [id number] [place] [id number] [phone] Social History Tobacco Use Types Packs/Day Years [...] Sign Reading Time Taken Comments Blood Pressure 134/70 08/04/2010 1028 EDT Pulse 80 08/04/2010 1028 EDT Temperature 36.3 ??C (97.3 ??F) 08/04/2010 0822 EDT Respiratory Rate 16 08/04/2010 1028 EDT Oxygen Saturation 95% 08/04/2010 1028 EDT Inhaled Oxygen Concentration - - Weight 91.6 kg (202 lb) 08/04/2010 0801 EDT Height 185.4 cm (6' 1) 08/04/2010 0801 EDT Body Mass Index 26.65 08/04/2010 0801 EDT documented in this encounter Discharge Disposition Disposition Code Departure Means Destination Home or Self Jail documented in this encounter H&P Notes Rian Villa - 08/04/2010 0929 EDT Sedation for Procedure History & Physical Date: 08/04/2010 Time: 9:29 Location: [address] Planned Procedure: Gastroscopy Chief Complaint/Indications for Procedure: reflux History Previous Complication with Sedation and/or Anesthesia? No Allergies: Not on File Current Medications: (Not in a hospital admission) Past Medical History: Past Medical History Diagnosis Date ??? GERD (gastroesophageal reflux disease) Social History: Past Surgical History Procedure Date ??? Appendectomy ??? Bladder surgery surgery at 8 yrs old ??? Colon surgery colostomy dosen't use bag long story History Substance Use Topics ??? Smoking status: Former Smoker ??? Smokeless tobacco: Not on file ??? Alcohol Use: Yes occ beer Family History: History reviewed. No pertinent family history. Review of Systems as pertinent: Physical Exam Vital Signs: BP 155/99 Pulse 80 Temp 36.3 ??C (97.3 ??F) Resp 18 Ht 185.4 cm (73) Wt 91.627 kg (202 lb) BMI 26.65 kg/m2 SpO2 99% Heart Examination: Cardiac Regularity: Regular Respiratory Examination: Respiratory Pattern: Regular Breath Sounds Right: Clear Breath Sounds Left: Clear Additional physical exam related to the proposed procedure, patient activity, disease state and treatment as pertinent: Assessment Previous complications with sedation or anesthesia?: No Airway Concerns: [place] Anesthesia Classification: ASA 1 Fasting Time: Time of last liquid intake: 1899 Date of Last Liquid Intake: 08/03/10 Time of last solid intake: 1899 Date of last solid intake: 08/03/10 Patient Appropriate Candidate for Planned Sedation?: Yes documented in this encounter Procedure Notes InpatientPhysician MD - 08/04/2010 0000 EDTAssociated Order(s): PROCEDURE REPORTS - SCANNED; PROCEDURE REPORTS - SCANNED documented in this encounter Miscellaneous Notes Scanned Note-Null - InpatientPhysician MD - 08/04/2010 0000 EDT canned Note-Null - Inpatient, MD Vincenzo - 08/04/2010 0000 EDT rief Op Note - Inpatient, MD Vincenzo - 08/04/2010 0000 EDT documented in this encounter Plan of Treatment Not on filedocumented as of this encounter Procedures Procedure Name Priority Date/Time Associated Diagnosis Comme nts PROCEDURE REPORTS - 08/05/2010 8:00 Resu lts for this SCANNED EDT procedure are i n the results section. documented in this encounter Results PROCEDURE REPORTS - SCANNED (08/05/2010 8:00 EDT) Specimen Narrative This result has an attachment that is no t available. Procedure Note InpatientPhysician MD - 08/04/2010 0 :00 EDT documented in this encounter Visit Diagnoses Diagnosis GERD (gastroesophageal reflux disease) Esophageal reflux documented in this encounter Orders Discharge Count Last Ordered Date First Ordered Date DISCHARGE PATIENT 1 08/04/2010 documented in this encounter Care Teams Sample Checker Relationship Specialty Start Date End Date Adonis Haywood MD PCP - General 04/02/[address] [place] [address] documented as of this encounter
--- OUTSIDE RECORDS SUMMARY | 2021-09-21 17:21 | XMS_ITS | Encounter Summary ---
:1940 Author Organization [facility] Address [address] [place] [address] Care Team Providers Name Role Phone Unavailable Primary Care Provider Unavailable Encounter Details Date Type Department Care Team Description 05/14/2001 - Hospital Encounter [facility] Maria Luz Villa MD 05/24/2001 General Surgery Unit [address] [address] [place], [place] [id number] Social History Tobacco Use Types Packs/Day Years Used Date Never Assessed Sex Assigned at Date Recorded Not on file documented as of this encounter Discharge Disposition Disposition Code Departure Means Destination Home-Health Care Svc documented in this encounter Plan of Treatment Not on filedocumented as of this encounter Procedures Procedure Name Priority Date/Time Associated Comments Diagnosis CREATININE Routine 05/23/2001 7:25 Results for this EST procedure are i n the results section. HEMAGRAM & DIFF Routine 05/23/2001 7:25 Results for this EST procedure are i n the results section. BUN Routine 05/23/2001 7:25 Results for this EST procedure are i n the results section. PHOSPHORUS Routine 05/23/2001 7:25 Results for this EST procedure are i n the results section. MAGNESIUM Routine 05/23/2001 7:25 Results for this EST procedure are i n the results section. CALCIUM Routine 05/23/2001 7:25 Results for this EST procedure are i n the results section. ELECTROLYTES Routine 05/23/2001 7:25 Results for this EST procedure are i n the results section. CREATININE Routine 05/22/2001 7:35 Results for this EST procedure are i n the results section. HEMAGRAM & DIFF Routine 05/22/2001 7:35 Results for this EST procedure are i n the results section. BUN Routine 05/22/2001 7:35 Results for this EST procedure are i n the results section. PHOSPHORUS Routine 05/22/2001 7:35 Results for this EST procedure are i n the results section. MAGNESIUM Routine 05/22/2001 7:35 Results for this EST procedure are i n the results section. CALCIUM Routine 05/22/2001 7:35 Results for this EST procedure are i n the results section. ELECTROLYTES Routine 05/22/2001 7:35 Results for this EST procedure are i n the results section. CREATININE Routine 05/21/2001 7:50 Results for this EST procedure are i n the results section. HEMAGRAM & DIFF Routine 05/21/2001 7:50 Results for this EST procedure are i n the results section. BUN Routine 05/21/2001 7:50 Results for this EST procedure are i n the results section. PHOSPHORUS Routine 05/21/2001 7:50 Results for this EST procedure are i n the results section. MAGNESIUM Routine 05/21/2001 7:50 Results for this EST procedure are i n the results section. CALCIUM Routine 05/21/2001 7:50 Results for this EST procedure are i n the results section. ELECTROLYTES Routine 05/21/2001 7:50 Results for this EST procedure are i n the results section. CREATININE Routine 05/20/2001 7:40 Results for this EST procedure are i n the results section. HEMAGRAM & DIFF Routine 05/20/2001 7:40 Results for this EST procedure are i n the results section. BUN Routine 05/20/2001 7:40 Results for this EST procedure are i n the results section. PHOSPHORUS Routine 05/20/2001 7:40 Results for this EST procedure are i n the results section. MAGNESIUM Routine 05/20/2001 7:40 Results for this EST procedure are i n the results section. CALCIUM Routine 05/20/2001 7:40 Results for this EST procedure are i n the results section. ELECTROLYTES Routine 05/20/2001 7:40 Results for this EST procedure are i n the results section. CREATININE Routine 05/19/2001 10:55 Results for this EST procedure are i n the results section. HEMAGRAM & DIFF Routine 05/19/2001 10:55 Results for this EST procedure are i n the results section. BUN Routine 05/19/2001 10:55 Results for this EST procedure are i n the results section. PHOSPHORUS Routine 05/19/2001 10:55 Results for this EST procedure are i n the results section. MAGNESIUM Routine 05/19/2001 10:55 Results for this EST procedure are i n the results section. CALCIUM Routine 05/19/2001 10:55 Results for this EST procedure are i n the results section. ELECTROLYTES Routine 05/19/2001 10:55 Results for this EST procedure are i n the results section. CREATININE Routine 05/18/2001 7:05 Results for this EST procedure are i n the results section. HEMAGRAM & DIFF Routine 05/18/2001 7:05 Results for this EST procedure are i n the results section. BUN Routine 05/18/2001 7:05 Results for this EST procedure are i n the results section. PHOSPHORUS Routine 05/18/2001 7:05 Results for this EST procedure are i n the results section. MAGNESIUM Routine 05/18/2001 7:05 Results for this EST procedure are i n the results section. CALCIUM Routine 05/18/2001 7:05 Results for this EST procedure are i n the results section. ELECTROLYTES Routine 05/18/2001 7:05 Results for this EST procedure are i n the results section. CREATININE Routine 05/17/2001 7:55 Results for this EST procedure are i n the results section. HEMAGRAM & DIFF Routine 05/17/2001 7:55 Results for this EST procedure are i n the results section. BUN Routine 05/17/2001 7:55 Results for this EST procedure are i n the results section. PHOSPHORUS Routine 05/17/2001 7:55 Results for this EST procedure are i n the results section. MAGNESIUM Routine 05/17/2001 7:55 Results for this EST procedure are i n the results section. CALCIUM Routine 05/17/2001 7:55 Results for this EST procedure are i n the results section. ELECTROLYTES Routine 05/17/2001 7:55 Results for this EST procedure are i n the results section. COMPLETE BLOOD COUNT Routine 05/16/2001 22:25 Res ults for this EST procedure are i n the results section. CREATININE Routine 05/16/2001 3:30 Results for this EST procedure are i n the results section. HEMAGRAM & DIFF Routine 05/16/2001 3:30 Results for this EST procedure are i n the results section. BUN Routine 05/16/2001 3:30 Results for this EST procedure are i n the results section. PHOSPHORUS Routine 05/16/2001 3:30 Results for this EST procedure are i n the results section. MAGNESIUM Routine 05/16/2001 3:30 Results for this EST procedure are i n the results section. CALCIUM Routine 05/16/2001 3:30 Results for this EST procedure are i n the results section. ELECTROLYTES Routine 05/16/2001 3:30 Results for this EST procedure are i n the results section. CREATININE Routine 05/15/2001 18:09 Results for this EST procedure are i n the results section. HEMAGRAM & DIFF Routine 05/15/2001 18:09 Results for this EST procedure are i n the results section. PTT Routine 05/15/2001 18:09 Results for this EST procedure are i n the results section. BUN Routine 05/15/2001 18:09 Results for this EST procedure are i n the results section. PHOSPHORUS Routine 05/15/2001 18:09 Results for this EST procedure are i n the results section. MAGNESIUM Routine 05/15/2001 18:09 Results for this EST procedure are i n the results section. CALCIUM Routine 05/15/2001 18:09 Results for this EST procedure are i n the results section. ELECTROLYTES Routine 05/15/2001 18:09 Results for this EST procedure are i n the results section. ANAEROBE Routine 05/15/2001 14:17 Results for this CULTURE/SMEAR(INC. EST procedure are in AEROBES), FLUID the results section. CREATININE Routine 05/15/2001 11:35 Results for this EST procedure are i n the results section. HEMAGRAM & DIFF Routine 05/15/2001 11:35 Results for this EST procedure are i n the results section. BUN Routine 05/15/2001 11:35 Results for this EST procedure are i n the results section. ELECTROLYTES Routine 05/15/2001 11:35 Results for this EST procedure are i n the results section. ACUTE ABDOMEN SERIES Routine 05/15/2001 8:51 Res ults for this EST procedure are i n the results section. CREATININE Routine 05/14/2001 20:58 Results for this EST procedure are i n the results section. HEMAGRAM & DIFF Routine 05/14/2001 20:58 Results for this EST procedure are i n the results section. BUN Routine 05/14/2001 20:58 Results for this EST procedure are i n the results section. LIPASE Routine 05/14/2001 20:58 Results for this EST procedure are i n the results section. HEPATIC FUNCTION Routine 05/14/2001 20:58 Results for this PANEL (ALB,ALK EST procedure are in PHOS,ALT,AST,DBIL,TOT the re sults LOYD,TOT PROT) section. ELECTROLYTES Routine 05/14/2001 20:58 Results for this EST procedure are i n the results section. documented in this encounter Results PHOSPHORUS (05/23/2001 7:25 EST) Pathologist Sig nature Phosphorus 2.8 2.5 - 4.5 mg/dl [facility] Specimen Performing Organization Address [facility] Phon e Number [facility] [address] [place] [address] SERVICES [facility] [address] [place] [address] MAGNESIUM (05/23/2001 7:25 EST) Pathologist Sig nature Magnesium 2.0 1.7 - 2.8 mg/dl [facility] Specimen Performing Organization Address [facility] Phon e Number [facility] [address] [place] [address] SERVICES [facility] [address] [place] [address] ELECTROLYTES (05/23/2001 7:25 EST) Pathologist Sig nature Sodium 139 136 - 145 mEq/L [facility] Potassium 3.7 3.5 - 5.0 mEq/L [facility] Chloride 106 96 - 110 mEq/L [facility] CO2 26 24 - 30 mEq/L [facility] Specimen Performing Organization Address [facility]/ZIP Code Phon e Number [facility] [address] [place] [address] SERVICES [facility] [address] [place] [address] CREATININE (05/23/2001 7:25 EST) Pathologist Sig nature Creatinine 0.9 0.7 - 1.5 mg/dl [facility] Specimen Performing Organization Address [facility] Phon e Number [facility] [address] [place] [address] SERVICES [facility] [address] [place] [address] (ABNORMAL) HEMAGRAM & DIFF (05/23/2001 7:25 EST) Pathologist Sig nature WBC 5.86 4.0 - 10.4 K/cmm [facility] RBC 4.23 (L) 4.36 - 5.78 M/cmm [facility] Hemoglobin 13.1 (L) 13.8 - 17.3 gm/dl [facility] HCT 38.7 (L) 39.5 - 50.2 % [facility] MCV 91 81 - 95 fl [facility] MCH 31.0 27.6 - 33.0 pg [facility] MCHC 33.9 32.8 - 36.4 gm/dl [facility] PLT 279 141 - 320 K/cmm [facility] RDW-CV 12.4 11.8 - 14.1 % [facility] Neutrophils 60.2 45.5 - 79.7 % [facility] Lymphocytes 22.4 15.0 - 46.8 % [facility] Monocytes 11.0 1.8 - 12.0 % [facility] Eosinophils 5.5 0.6 - 6.9 % [facility] Basophils 0.9 0.2 - 1.4 % [facility] ABS Neutrophils 3.53 2.20 - 8.85 K/cmm [facility] ABS Lymphs 1.32 1.09 - 3.30 K/cmm [facility] ABS Monocytes 0.64 0.1 - 0.8 K/cmm [facility] ABS Eosinophils 0.32 0.03 - 0.61 K/cmm [facility] ABS Basophils 0.05 0.01 - 0.11 K/cmm [facility] Type of Diff: Automated [facility] Specimen Performing Organization Address City/State/ZIP Code Phon e Number [facility] [address] [place] [address] SERVICES [facility] [address] [place] [address] (ABNORMAL) CALCIUM (05/23/2001 7:25 EST) Pathologist Sig nature Calcium 8.3 (L) 8.5 - 10.5 mg/dl [facility] Calculated Calcium 10.1 8.5 - 10.5 mg/dl [facility] Specimen Performing Organization Address City/[facility]/ZIP Code Phon e Number [facility] [address] [place] [address] SERVICES [facility] [address] [place] [address] (ABNORMAL) BUN (05/23/2001 7:25 EST) Pathologist Sig nature BUN 4 (L) 10 - 26 mg/dl [facility] Specimen Performing Organization Address [facility]/ZIP Code Phon e Number [facility] [address] [place] [address] SERVICES [facility] [address] [place] [address] PHOSPHORUS (05/22/2001 7:35 EST) Pathologist Sig nature Phosphorus 3.0 2.5 - 4.5 mg/dl [facility] Specimen Performing Organization Address [facility] Phon e Number [facility] [address] [place] [address] SERVICES [facility] [address] [place] [address] MAGNESIUM (05/22/2001 7:35 EST) Pathologist Sig nature Magnesium 2.1 1.7 - 2.8 mg/dl [facility] Specimen Performing Organization Address [facility]/ZIP Code Phon e Number [facility] [address] [place] [address] SERVICES [facility] [address] [place] [address] ELECTROLYTES (05/22/2001 7:35 EST) Pathologist Sig nature Sodium 139 136 - 145 mEq/L [facility] Potassium 4.0 3.5 - 5.0 mEq/L [facility] Chloride 103 96 - 110 mEq/L [facility] CO2 27 24 - 30 mEq/L [facility] Specimen Performing Organization Address [facility]/ZIP Code Phon e Number [facility] [address] [place] [address] SERVICES [facility] [address] [place] [address] CREATININE (05/22/2001 7:35 EST) Pathologist Sig nature Creatinine 0.9 0.7 - 1.5 mg/dl [facility] Specimen Performing Organization Address [facility]/ZIP Code Phon e Number [facility] [address] [place] [address] SERVICES [facility] [address] [place] [address] (ABNORMAL) HEMAGRAM & DIFF (05/22/2001 7:35 EST) Pathologist Sig nature WBC 7.15 4.0 - 10.4 K/cmm [facility] RBC 4.39 4.36 - 5.78 M/cmm [facility] Hemoglobin 13.8 13.8 - 17.3 gm/dl [facility] HCT 40.3 39.5 - 50.2 % [facility] MCV 92 81 - 95 fl [facility] MCH 31.5 27.6 - 33.0 pg [facility] MCHC 34.3 32.8 - 36.4 gm/dl [facility] PLT 285 141 - 320 K/cmm [facility] RDW-CV 12.2 11.8 - 14.1 % [facility] Neutrophils 63.1 45.5 - 79.7 % [facility] Lymphocytes 19.3 15.0 - 46.8 % [facility] Monocytes 11.9 1.8 - 12.0 % [facility] Eosinophils 4.6 0.6 - 6.9 % [facility] Basophils 1.1 0.2 - 1.4 % [facility] ABS Neutrophils 4.52 2.20 - 8.85 K/cmm [facility] ABS Lymphs 1.38 1.09 - 3.30 K/cmm [facility] ABS Monocytes 0.85 (H) 0.1 - 0.8 K/cmm [facility] ABS Eosinophils 0.33 0.03 - 0.61 K/cmm [facility] ABS Basophils 0.08 0.01 - 0.11 K/cmm [facility] Type of Diff: Automated [facility] Specimen Performing Organization Address City/[facility] Phon e Number [facility] [address] [place] [address] SERVICES [facility] [address] [place] [address] (ABNORMAL) CALCIUM (05/22/2001 7:35 EST) Pathologist Sig nature Calcium 8.3 (L) 8.5 - 10.5 mg/dl [facility] Calculated Calcium 10.0 8.5 - 10.5 mg/dl [facility] Specimen Performing Organization Address [facility]/ZIP Code Phon e Number [facility] [address] [place] [address] SERVICES [facility] [address] [place] [address] (ABNORMAL) BUN (05/22/2001 7:35 EST) Pathologist Sig nature BUN 7 (L) 10 - 26 mg/dl [facility] Specimen Performing Organization Address [facility] Phon e Number [facility] [address] [place] [address] SERVICES [facility] [address] [place] [address] PHOSPHORUS (05/21/2001 7:50 EST) Pathologist Sig nature Phosphorus 3.0 2.5 - 4.5 mg/dl [facility] Specimen Performing Organization Address [facility] Phon e Number [facility] [address] [place] [address] SERVICES [facility] [address] [place] [address] MAGNESIUM (05/21/2001 7:50 EST) Pathologist Sig nature Magnesium 2.2 1.7 - 2.8 mg/dl [facility] Specimen Performing Organization Address [facility] Phon e Number [facility] [address] [place] [address] SERVICES [facility] [address] [place] [address] ELECTROLYTES (05/21/2001 7:50 EST) Pathologist Sig nature Sodium 138 136 - 145 mEq/L [facility] Potassium 4.0 3.5 - 5.0 mEq/L [facility] Chloride 102 96 - 110 mEq/L [facility] CO2 27 24 - 30 mEq/L [facility] Specimen Performing Organization Address [facility]/ZIP Code Phon e Number [facility] [address] [place] [address] SERVICES [facility] [address] [place] [address] CREATININE (05/21/2001 7:50 EST) Pathologist Sig nature Creatinine 1.0 0.7 - 1.5 mg/dl [facility] Specimen Performing Organization Address [facility]/ZIP [facility] Phon e Number [facility] [address] [place] [address] SERVICES [facility] [address] [place] [address] HEMAGRAM & DIFF (05/21/2001 7:50 EST) Pathologist Sig nature WBC 6.91 4.0 - 10.4 K/cmm [facility] RBC 4.60 4.36 - 5.78 M/cmm [facility] Hemoglobin 14.3 13.8 - 17.3 gm/dl [facility] HCT 42.5 39.5 - 50.2 % [facility] MCV 92 81 - 95 fl [facility] MCH 31.0 27.6 - 33.0 pg [facility] MCHC 33.6 32.8 - 36.4 gm/dl [facility] PLT 284 141 - 320 K/cmm [facility] RDW-CV 12.3 11.8 - 14.1 % [facility] Neutrophils 62.5 45.5 - 79.7 % [facility] Lymphocytes 22.3 15.0 - 46.8 % [facility] Monocytes 10.3 1.8 - 12.0 % [facility] Eosinophils 4.3 0.6 - 6.9 % [facility] Basophils 0.6 0.2 - 1.4 % [facility] ABS Neutrophils 4.32 2.20 - 8.85 K/cmm [facility] ABS Lymphs 1.54 1.09 - 3.30 K/cmm [facility] ABS Monocytes 0.71 0.1 - 0.8 K/cmm [facility] ABS Eosinophils 0.29 0.03 - 0.61 K/cmm [facility] ABS Basophils 0.04 0.01 - 0.11 K/cmm [facility] Type of Diff: Automated [facility] Specimen Performing Organization Address City/State/ZIP Code Phon e Number [facility] [address] [place] [address] SERVICES [facility] [address] [place] [address] CALCIUM (05/21/2001 7:50 EST) Pathologist Sig nature Calcium 8.5 8.5 - 10.5 mg/dl [facility] Calculated Calcium 10.1 8.5 - 10.5 mg/dl [facility] Specimen Performing Organization Address City/[facility]/ZIP Code Phon e Number [facility] [address] [place] [address] SERVICES [facility] [address] [place] [address] (ABNORMAL) BUN (05/21/2001 7:50 EST) Pathologist Sig nature BUN 9 (L) 10 - 26 mg/dl [facility] Specimen Performing Organization Address [facility]/ZIP Code Phon e Number [facility] [address] [place] [address] SERVICES [facility] [address] [place] [address] PHOSPHORUS (05/20/2001 7:40 EST) Pathologist Sig nature Phosphorus 2.6 2.5 - 4.5 mg/dl [facility] Specimen Performing Organization Address [facility] Phon e Number [facility] [address] [place] [address] SERVICES [facility] [address] [place] [address] MAGNESIUM (05/20/2001 7:40 EST) Pathologist Sig nature Magnesium 2.1 1.7 - 2.8 mg/dl [facility] Specimen Performing Organization Address [facility] Code Phon e Number [facility] [address] [place] [address] SERVICES [facility] [address] [place] [address] ELECTROLYTES (05/20/2001 7:40 EST) Pathologist Sig nature Sodium 137 136 - 145 mEq/L [facility] Potassium 4.5 3.5 - 5.0 mEq/L [facility] Chloride 102 96 - 110 mEq/L [facility] CO2 28 24 - 30 mEq/L [facility] Specimen Performing Organization Address [facility]/ZIP Code Phon e Number [facility] [address] [place] [address] SERVICES [facility] [address] [place] [address] CREATININE (05/20/2001 7:40 EST) Pathologist Sig nature Creatinine 1.0 0.7 - 1.5 mg/dl [facility] Specimen Performing Organization Address [facility]/ZIP Code Phon e Number [facility] [address] [place] [address] SERVICES [facility] [address] [place] [address] HEMAGRAM & DIFF (05/20/2001 7:40 EST) WBC 7.08 4.0 - 10.4 [facility] K/cmm LAB RBC 4.44 4.36 - 5.78 [facility] M/cmm LAB Hemoglobin 13.9 13.8 - 17.3 [facility] gm/dl LAB HCT 41.2 39.5 - 50.2 [facility] % LAB MCV 93 81 - 95 fl [facility] MCH 31.2 27.6 - 33.0 [facility] pg LAB MCHC 33.7 32.8 - 36.4 [facility] gm/dl LAB PLT 269 141 - 320 [facility] K/cmm LAB RDW-CV 12.1 11.8 - 14.1 [facility] % LAB Neutrophils 72 45.5 - 79.7 [facility] % LAB Lymphocytes 17 15.0 - 46.8 [facility] % LAB Monocytes 8 1.8 - 12.0 % [facility] Eosinophils 2 0.6 - 6.9 % [facility] Metamyelocytes 1 % [facility] ABS Neutrophils 5.10 2.20 - 8.85 [facility] K/cmm LAB ABS Lymphs 1.20 1.09 - 3.30 [facility] K/cmm LAB ABS Monocytes 0.57 0.1 - 0.8 [facility] K/cmm LAB ABS Eosinophils 0.14 0.03 - 0.61 [facility] K/cmm LAB ABS Metamyelocytes 0.07 K/cmm [facility] RBC Morphology 1+ Polychromasia [facility] 1+ Poikilocytosis LAB Platelet Morphology 1+ Large platelets [facility] Type of Diff: Manual [facility] Specimen Performing Organization Address City/State/ZIP Code Phon e Number [facility] [address] [place] [address] SERVICES [facility] [address] [place] [address] (ABNORMAL) CALCIUM (05/20/2001 7:40 EST) Pathologist Sig nature Calcium 8.4 (L) 8.5 - 10.5 mg/dl [facility] Calculated Calcium 10.2 8.5 - 10.5 mg/dl [facility] Specimen Performing Organization Address [facility] Phon e Number [facility] [address] [place] [address] SERVICES [facility] [address] [place] [address] (ABNORMAL) BUN (05/20/2001 7:40 EST) Pathologist Sig nature BUN 7 (L) 10 - 26 mg/dl [facility] Specimen Performing Organization Address [facility] Phon e Number [facility] [address] [place] [address] SERVICES [facility] [address] [place] [address] PHOSPHORUS (05/19/2001 10:55 EST) Pathologist Sig nature Phosphorus 2.5 2.5 - 4.5 mg/dl [facility] Specimen Performing Organization Address [facility] Phon e Number [facility] [address] [place] [address] SERVICES [facility] [address] [place] [address] MAGNESIUM (05/19/2001 10:55 EST) Pathologist Sig nature Magnesium 2.1 1.7 - 2.8 mg/dl [facility] Specimen Performing Organization Address [facility] Phon e Number [facility] [address] [place] [address] SERVICES [facility] [address] [place] [address] ELECTROLYTES (05/19/2001 10:55 EST) Pathologist Sig nature Sodium 138 136 - 145 mEq/L [facility] Potassium 4.3Comment: Sample 3.5 - 5.0 mEq/L [facility] retested, result confirmed Chloride 102 96 - 110 mEq/L [facility] CO2 28 24 - 30 mEq/L [facility] Specimen Performing Organization Address [facility] Phon e Number [facility] [address] [place] [address] SERVICES [facility] [address] [place] [address] CREATININE (05/19/2001 10:55 EST) Pathologist Sig nature Creatinine 0.9 0.7 - 1.5 mg/dl [facility] Specimen Performing Organization Address [facility]/ZIP Code Phon e Number [facility] [address] [place] [address] SERVICES [facility] [address] [place] [address] (ABNORMAL) HEMAGRAM & DIFF (05/19/2001 10:55 EST) Pathologist [facility] nature WBC 7.39 4.0 - 10.4 K/cmm [facility] RBC 4.54 4.36 - 5.78 M/cmm [facility] Hemoglobin 14.3 13.8 - 17.3 gm/dl [facility] HCT 42.8 39.5 - 50.2 % [facility] MCV 94 81 - 95 fl [facility] MCH 31.4 27.6 - 33.0 pg [facility] MCHC 33.3 32.8 - 36.4 gm/dl [facility] PLT 266 141 - 320 K/cmm [facility] RDW-CV 12.3 11.8 - 14.1 % [facility] Neutrophils 73.9 45.5 - 79.7 % [facility] Lymphocytes 12.0 (L) 15.0 - 46.8 % [facility] Monocytes 10.3 1.8 - 12.0 % [facility] Eosinophils 3.5 0.6 - 6.9 % [facility] Basophils 0.3 0.2 - 1.4 % [facility] ABS Neutrophils 5.46 2.20 - 8.85 K/cmm [facility] ABS Lymphs 0.89 (L) 1.09 - 3.30 K/cmm [facility] ABS Monocytes 0.76 0.1 - 0.8 K/cmm [facility] ABS Eosinophils 0.26 0.03 - 0.61 K/cmm [facility] ABS Basophils 0.02 0.01 - 0.11 K/cmm [facility] Type of Diff: Automated [facility] Specimen Performing Organization Address City/State/ZIP Code Phon e Number [facility] [address] [place] [address] SERVICES [facility] [address] [place] [address] (ABNORMAL) CALCIUM (05/19/2001 10:55 EST) Pathologist Sig nature Calcium 8.2 (L) 8.5 - 10.5 mg/dl [facility] Calculated Calcium 9.9 8.5 - 10.5 mg/dl [facility] Specimen Performing Organization Address City/[facility] Code Phon e Number [facility] [address] [place] [address] SERVICES [facility] [address] [place] [address] (ABNORMAL) BUN (05/19/2001 10:55 EST) Pathologist Sig nature BUN 7 (L) 10 - 26 mg/dl [facility] Specimen Performing Organization Address [facility] Phon e Number [facility] [address] [place] [address] SERVICES [facility] [address] [place] [address] (ABNORMAL) PHOSPHORUS (05/18/2001 7:05 EST) Pathologist Sig nature Phosphorus 2.2 (L) 2.5 - 4.5 mg/dl [facility] Specimen Performing Organization Address [facility] Phon e Number [facility] [address] [place] [address] SERVICES [facility] [address] [place] [address] MAGNESIUM (05/18/2001 7:05 EST) Pathologist Sig nature Magnesium 2.0 1.7 - 2.8 mg/dl [facility] Specimen Performing Organization Address [facility] Phon e Number [facility] [address] [place] [address] SERVICES [facility] [address] [place] [address] (ABNORMAL) ELECTROLYTES (05/18/2001 7:05 EST) Pathologist Sig nature Sodium 138 136 - 145 mEq/L [facility] Potassium 3.4 (L) 3.5 - 5.0 mEq/L [facility] Chloride 104 96 - 110 mEq/L [facility] CO2 28 24 - 30 mEq/L [facility] Specimen Performing Organization Address [facility] Phon e Number [facility] [address] [place] [address] SERVICES [facility] [address] [place] [address] CREATININE (05/18/2001 7:05 EST) Pathologist Sig nature Creatinine 0.9 0.7 - 1.5 mg/dl [facility] Specimen Performing Organization Address City/State/ZIP Code Phon e Number [facility] [address] [place] [address] SERVICES [facility] [address] [place] [address] (ABNORMAL) HEMAGRAM & DIFF (05/18/2001 7:05 EST) Pathologist Sig nature WBC 6.31 4.0 - 10.4 K/cmm [facility] RBC 4.28 (L) 4.36 - 5.78 M/cmm [facility] Hemoglobin 13.3 (L) 13.8 - 17.3 gm/dl [facility] HCT 39.8 39.5 - 50.2 % [facility] MCV 93 81 - 95 fl [facility] MCH 31.1 27.6 - 33.0 pg [facility] MCHC 33.4 32.8 - 36.4 gm/dl [facility] PLT 198 141 - 320 K/cmm [facility] RDW-CV 12.3 11.8 - 14.1 % [facility] Neutrophils 72.8 45.5 - 79.7 % [facility] Lymphocytes 13.5 (L) 15.0 - 46.8 % [facility] Monocytes 9.1 1.8 - 12.0 % [facility] Eosinophils 4.0 0.6 - 6.9 % [facility] Basophils 0.6 0.2 - 1.4 % [facility] ABS Neutrophils 4.60 2.20 - 8.85 K/cmm [facility] ABS Lymphs 0.85 (L) 1.09 - 3.30 K/cmm [facility] ABS Monocytes 0.57 0.1 - 0.8 K/cmm [facility] ABS Eosinophils 0.25 0.03 - 0.61 K/cmm [facility] ABS Basophils 0.04 0.01 - 0.11 K/cmm [facility] Type of Diff: Automated [facility] Specimen Performing Organization Address City/State/ZIP Code Phon e Number [facility] [address] [place] [address] SERVICES [facility] [address] [place] [address] (ABNORMAL) CALCIUM (05/18/2001 7:05 EST) Pathologist Sig nature Calcium 7.3 (L) 8.5 - 10.5 mg/dl [facility] Calculated Calcium 9.6 8.5 - 10.5 mg/dl [facility] Specimen Performing Organization Address [facility] Code Phon e Number [facility] [address] [place] [address] SERVICES [facility] [address] [place] [address] (ABNORMAL) BUN (05/18/2001 7:05 EST) Pathologist Sig nature BUN 9 (L) 10 - 26 mg/dl [facility] Specimen Performing Organization Address [facility] Phon e Number [facility] [address] [place] [address] SERVICES [facility] [address] [place] [address] (ABNORMAL) PHOSPHORUS (05/17/2001 7:55 EST) Pathologist Sig nature Phosphorus 2.2 (L) 2.5 - 4.5 mg/dl [facility] Specimen Performing Organization Address [facility] Phon e Number [facility] [address] [place] [address] SERVICES [facility] [address] [place] [address] MAGNESIUM (05/17/2001 7:55 EST) Pathologist Sig nature Magnesium 2.2 1.7 - 2.8 mg/dl [facility] Specimen Performing Organization Address [facility] Phon e Number [facility] [address] [place] [address] SERVICES [facility] [address] [place] [address] ELECTROLYTES (05/17/2001 7:55 EST) Pathologist Sig nature Sodium 142 136 - 145 mEq/L [facility] Potassium 3.5 3.5 - 5.0 mEq/L [facility] Chloride 107 96 - 110 mEq/L [facility] CO2 28 24 - 30 mEq/L [facility] Specimen Performing Organization Address [facility]/ZIP Code Phon e Number [facility] [address] [place] [address] SERVICES [facility] [address] [place] [address] CREATININE (05/17/2001 7:55 EST) Pathologist Sig nature Creatinine 1.1 0.7 - 1.5 mg/dl [facility] Specimen Performing Organization Address City/State/ZIP Code Phon e Number [facility] [address] [place] [address] SERVICES [facility] [address] [place] [address] (ABNORMAL) HEMAGRAM & DIFF (05/17/2001 7:55 EST) Pathologist Sig nature WBC 6.28 4.0 - 10.4 K/cmm [facility] RBC 4.23 (L) 4.36 - 5.78 M/cmm [facility] Hemoglobin 13.5 (L) 13.8 - 17.3 gm/dl [facility] HCT 39.2 (L) 39.5 - 50.2 % [facility] MCV 93 81 - 95 fl [facility] MCH 31.8 27.6 - 33.0 pg [facility] MCHC 34.4 32.8 - 36.4 gm/dl [facility] PLT 206 141 - 320 K/cmm [facility] RDW-CV 12.7 11.8 - 14.1 % [facility] Neutrophils 74.8 45.5 - 79.7 % [facility] Lymphocytes 13.3 (L) 15.0 - 46.8 % [facility] Monocytes 7.9 1.8 - 12.0 % [facility] Eosinophils 3.4 0.6 - 6.9 % [facility] Basophils 0.6 0.2 - 1.4 % [facility] ABS Neutrophils 5.92 2.20 - 8.85 K/cmm [facility] ABS Lymphs 1.05 (L) 1.09 - 3.30 K/cmm [facility] ABS Monocytes 0.62 0.1 - 0.8 K/cmm [facility] ABS Eosinophils 0.27 0.03 - 0.61 K/cmm [facility] ABS Basophils 0.05 0.01 - 0.11 K/cmm [facility] Type of Diff: Automated [facility] Specimen Performing Organization Address [facility] Phon e Number [facility] [address] [place] [address] SERVICES [facility] [address] [place] [address] (ABNORMAL) CALCIUM (05/17/2001 7:55 EST) Pathologist Sig nature Calcium 7.4 (L) 8.5 - 10.5 mg/dl [facility] Calculated Calcium 9.8 8.5 - 10.5 mg/dl [facility] Specimen Performing Organization Address [facility] Phon e Number [facility] [address] [place] [address] SERVICES [facility] [address] [place] [address] BUN (05/17/2001 7:55 EST) Pathologist Sig nature BUN 16 10 - 26 mg/dl [facility] Specimen Performing Organization Address [facility] Phon e Number [facility] [address] [place] [address] SERVICES [facility] [address] [place] [address] (ABNORMAL) HEMAGRAM (05/16/2001 22:25 EST) Pathologist Sig nature WBC 8.26 4.0 - 10.4 K/cmm [facility] RBC 4.41 4.36 - 5.78 M/cmm [facility] Hemoglobin 13.6 (L) 13.8 - 17.3 gm/dl [facility] HCT 41.5 39.5 - 50.2 % [facility] MCV 94 81 - 95 fl [facility] MCH 30.9 27.6 - 33.0 pg [facility] MCHC 32.9 32.8 - 36.4 gm/dl [facility] PLT 214 141 - 320 K/cmm [facility] RDW-CV 12.7 11.8 - 14.1 % [facility] Specimen Performing Organization Address [facility]/ZIP [facility] Phon e Number [facility] [address] [place] [address] SERVICES [facility] [address] [place] [address] PHOSPHORUS (05/16/2001 3:30 EST) Pathologist Sig nature Phosphorus 3.0 2.5 - 4.5 mg/dl [facility] Specimen Performing Organization Address [facility] Phon e Number [facility] [address] [place] [address] SERVICES [facility] [address] [place] [address] MAGNESIUM (05/16/2001 3:30 EST) Pathologist Sig nature Magnesium 1.7 1.7 - 2.8 mg/dl [facility] Specimen Performing Organization Address [facility] Code Phon e Number [facility] [address] [place] [address] SERVICES [facility] [address] [place] [address] ELECTROLYTES (05/16/2001 3:30 EST) Pathologist Sig nature Sodium 140 136 - 145 mEq/L [facility] Potassium 3.8 3.5 - 5.0 mEq/L [facility] Chloride 106 96 - 110 mEq/L [facility] CO2 29 24 - 30 mEq/L [facility] Specimen Performing Organization Address [facility] Code Phon e Number [facility] [address] [place] [address] SERVICES [facility] [address] [place] [address] CREATININE (05/16/2001 3:30 EST) Pathologist Sig nature Creatinine 1.2 0.7 - 1.5 mg/dl [facility] Specimen Performing Organization Address [facility] Phon e Number [facility] [address] [place] [address] SERVICES [facility] [address] [place] [address] (ABNORMAL) HEMAGRAM & DIFF (05/16/2001 3:30 EST) Pathologist Sig nature WBC 9.46 4.0 - 10.4 K/cmm [facility] RBC 5.04 4.36 - 5.78 M/cmm [facility] Hemoglobin 15.8 13.8 - 17.3 gm/dl [facility] HCT 47.0 39.5 - 50.2 % [facility] MCV 93 81 - 95 fl [facility] MCH 31.3 27.6 - 33.0 pg [facility] MCHC 33.5 32.8 - 36.4 gm/dl [facility] PLT 241 141 - 320 K/cmm [facility] RDW-CV 12.8 11.8 - 14.1 % [facility] Neutrophils 88 (H) 45.5 - 79.7 % [facility] Bands 1 % [facility] Lymphocytes 8 (L) 15.0 - 46.8 % [facility] Monocytes 3 1.8 - 12.0 % [facility] ABS Neutrophils 8.33 2.20 - 8.85 K/cmm [facility] ABS Bands 0.09 K/cmm [facility] ABS Lymphs 0.76 (L) 1.09 - 3.30 K/cmm [facility] ABS Monocytes 0.28 0.1 - 0.8 K/cmm [facility] RBC Morphology Normal [facility] Type of Diff: Manual [facility] Specimen Performing Organization Address [facility] Phon e Number [facility] [address] [place] [address] SERVICES [facility] [address] [place] [address] (ABNORMAL) CALCIUM (05/16/2001 3:30 EST) Pathologist Sig nature Calcium 7.9 (L) 8.5 - 10.5 mg/dl [facility] Calculated Calcium 10.3 8.5 - 10.5 mg/dl [facility] Specimen Performing Organization Address [facility] Phon e Number [facility] [address] [place] [address] SERVICES [facility] [address] [place] [address] BUN (05/16/2001 3:30 EST) Pathologist Sig nature BUN 20 10 - 26 mg/dl [facility] Specimen Performing Organization Address [facility] Phon e Number [facility] [address] [place] [id number] SERVICES [facility] [address] [place] [address] PTT (05/15/2001 18:09 EST) Pathologist Sig nature PTT 31Comment: Therapeutic 23 - 33 secs [facility] Heparin range: 58-100 seconds Specimen Performing Organization Address City/[facility] Phon e Number [facility] [address] [place] [address] SERVICES [facility] [address] [place] [address] (ABNORMAL) PHOSPHORUS (05/15/2001 18:09 EST) Pathologist Sig nature Phosphorus 2.4 (L) 2.5 - 4.5 mg/dl [facility] Specimen Performing Organization Address [facility] Phon e Number [facility] [address] [place] [address] SERVICES [facility] [address] [place] [address] (ABNORMAL) MAGNESIUM (05/15/2001 18:09 EST) Pathologist Sig nature Magnesium 1.6 (L) 1.7 - 2.8 mg/dl [facility] Specimen Performing Organization Address [facility] Code Phon e Number [facility] [address] [place] [address] SERVICES [facility] [address] [place] [address] ELECTROLYTES (05/15/2001 18:09 EST) Pathologist Sig nature Sodium 137 136 - 145 mEq/L [facility] Potassium 4.1 3.5 - 5.0 mEq/L [facility] Chloride 105 96 - 110 mEq/L [facility] CO2 27 24 - 30 mEq/L [facility] Specimen Performing Organization Address [facility]/ZIP Code Phon e Number [facility] [address] [place] [address] SERVICES [facility] [address] [place] [address] CREATININE (05/15/2001 18:09 EST) Pathologist Sig nature Creatinine 1.1 0.7 - 1.5 mg/dl [facility] Specimen Performing Organization Address [facility]/ZIP [facility] Phon e Number [facility] [address] [place] [address] SERVICES [facility] [address] [place] [address] (ABNORMAL) HEMAGRAM & DIFF (05/15/2001 18:09 EST) WBC 10.43 (H) 4.0 - 10.4 [facility] K/cmm LAB RBC 5.21 4.36 - 5.78 [facility] M/cmm LAB Hemoglobin 16.4 13.8 - 17.3 [facility] gm/dl LAB HCT 49.2 39.5 - 50.2 % [facility] MCV 94 81 - 95 fl [facility] MCH 31.4 27.6 - 33.0 [facility] pg LAB MCHC 33.3 32.8 - 36.4 [facility] gm/dl LAB PLT 242 141 - 320 [facility] K/cmm LAB RDW-CV 12.7 11.8 - 14.1 % [facility] Neutrophils 83 (H) 45.5 - 79.7 % [facility] Bands 7 % [facility] Lymphocytes 4 (L) 15.0 - 46.8 % [facility] Atyp Lymphs 5 % [facility] Monocytes 1 (L) 1.8 - 12.0 % [facility] ABS Neutrophils 8.66 2.20 - 8.85 [facility] K/cmm LAB ABS Bands 0.73 K/cmm [facility] ABS Lymphs 0.42 (L) 1.09 - 3.30 [facility] K/cmm LAB ABS Atyp Lymphs 0.52 K/cmm [facility] ABS Monocytes 0.10 0.1 - 0.8 [facility] K/cmm LAB RBC Morphology Normal [facility] WBC Morphology 1+ Toxic granulation [facility] 1+ Vacuolization LAB Type of Diff: Manual [facility] Specimen Performing Organization Address City/[facility]/ZIP Code Phon e Number [facility] [address] [place] [address] SERVICES [facility] [address] [place] [address] (ABNORMAL) CALCIUM (05/15/2001 18:09 EST) Pathologist Sig nature Calcium 8.1 (L) 8.5 - 10.5 mg/dl [facility] Calculated Calcium 10.6 (H) 8.5 - 10.5 mg/dl [facility] Specimen Performing Organization Address City/[facility]/ZIP Code Phon e Number [facility] [address] [place] [address] SERVICES [facility] [address] [place] [address] BUN (05/15/2001 18:09 EST) Pathologist Sig nature BUN 17 10 - 26 mg/dl [facility] Specimen Performing Organization Address City/State/ZIP Code Phon e Number [facility] [address] [place] [address] SERVICES [facility] [address] [place] [address] ANAEROBE CULTURE/SMEAR(INC. AEROBES), FLUID (05/15/2001 14:17 EST) Specimen Peritoneal Fluid [facility] Description Specimen processed uncentrifuged LAB Gram Smear Result Many [facility] Polys LAB Mod Mononuclear cells No bacteria seen Result No growth [facility] LAB Report Status Final [facility] [id number] LAB Specimen Performing Organization Address City/[facility]/ZIP Code Phon e Number [facility] [address] [place] [address] SERVICES [facility] [address] [place] [address] ELECTROLYTES (05/15/2001 11:35 EST) Pathologist Sig nature Sodium 141 136 - 145 mEq/L [facility] Potassium 4.4 3.5 - 5.0 mEq/L [facility] Chloride 106 96 - 110 mEq/L [facility] CO2 24 24 - 30 mEq/L [facility] Specimen Performing Organization Address City/State/ZIP Code Phon e Number [facility] [address] [place] [address] SERVICES [facility] [address] [place] [address] CREATININE (05/15/2001 11:35 EST) Pathologist Sig nature Creatinine 1.1 0.7 - 1.5 mg/dl [facility] Specimen Performing Organization Address City/[facility]/ZIP Code Phon e Number [facility] [address] [place] [address] SERVICES [facility] [address] [place] [address] (ABNORMAL) HEMAGRAM & DIFF (05/15/2001 11:35 EST) Pathologist Sig nature WBC 9.43 4.0 - 10.4 K/cmm [facility] RBC 5.58 4.36 - 5.78 M/cmm [facility] Hemoglobin 17.3 13.8 - 17.3 gm/dl [facility] LAB HCT 51.9 (H) 39.5 - 50.2 % [facility] MCV 93 81 - 95 fl [facility] MCH 31.0 27.6 - 33.0 pg [facility] MCHC 33.3 32.8 - 36.4 gm/dl [facility] PLT 261 141 - 320 K/cmm [facility] RDW-CV 12.9 11.8 - 14.1 % [facility] Neutrophils 82.5 (H) 45.5 - 79.7 % [facility] Lymphocytes 10.2 (L) 15.0 - 46.8 % [facility] Monocytes 7.0 1.8 - 12.0 % [facility] Eosinophils 0.3 (L) 0.6 - 6.9 % [facility] Basophils 0.0 (L) 0.2 - 1.4 % [facility] ABS Neutrophils 7.78 2.20 - 8.85 K/cmm [facility] ABS Lymphs 0.96 (L) 1.09 - 3.30 K/cmm [facility] ABS Monocytes 0.66 0.1 - 0.8 K/cmm [facility] ABS Eosinophils 0.03 0.03 - 0.61 K/cmm [facility] ABS Basophils 0.00 (L) 0.01 - 0.11 K/cmm [facility] Type of Diff: Automated [facility] Specimen Performing Organization Address City/[facility]/ZIP Code Phon e Number [facility] [address] [place] [address] SERVICES [facility] [address] [place] [address] BUN (05/15/2001 11:35 EST) Pathologist Sig nature BUN 18 10 - 26 mg/dl [facility] Specimen Performing Organization Address City/[facility]/ZIP Code Phon e Number [facility] [address] [place] [address] SERVICES [facility] [address] [place] [address] ACUTE ABDOMEN SERIES (05/15/2001 8:51 EST) Anatomical Region Laterality Modality Other Specimen Impressions [facility] - 04/04/2009 3 :16 EST IMPRESSION: 1. Possible bowel obstruction in the reg ion of the splenic flexure without evidence of perforation. D 05/15/01 T 05/17/01 /ishmael Narrative [facility] - 04/04/2009 3 :16 EST SMALL BOWEL OBSTRUCTION R/O ASSESS AIR AMOUNT IN STOMACH, BOWELS ACUTE ABDOMINAL SERIES 05/15/01, 0845 ho urs FINDINGS: A single upright view of the chest shows a nasogastric tube just beyond the gastroesophageal junction. Th e lung volumes are diminished. There is no free air identif ied beneath the diaphragm. Supine and upright views of the abdomen show multiple loops of distended air filled small bowel as well as distended and air filled hepatic flexure and transverse colon. Th e descending colon on the right is decompressed and there is no ai r or stool identified in the rectum. There is no evidence of perforat ion. These findings are consistent with a possible large bowel o bstruction or ileus. There are several fluid levels within the smal l bowel seen on the upright examination also consistent with obstruc tion. Procedure Note Liu Marquez MD / Naseem Bui MD - 04/04/2009 SMALL BOWEL OBSTRUCTION R/O ASSESS AIR AMOUNT IN STOMACH, BOWELS ACUTE ABDOMINAL SERIES 05/15/01, 45 ho urs FINDINGS: A single upright view of the chest shows a nasogastric tube just beyond the gastroesophageal junction. Th e lung volumes are diminished. There is no free air identif ied beneath the diaphragm. Supine and upright views of the abdomen show multiple loops of distended air filled small bowel as well as distended and air filled hepatic flexure and transverse colon. Th e descending colon on the right is decompressed and there is no ai r or stool identified in the rectum. There is no evidence of perforat ion. These findings are consistent with a possible large bowel o bstruction or ileus. There are several fluid levels within the smal l bowel seen on the upright examination also consistent with obstruc tion. IMPRESSION IMPRESSION: 1. Possible bowel obstruction in the reg ion of the splenic flexure without evidence of perforation. D 05/15/01 T 05/17/01 /ishmael Performing Organization Address City/State/ZIP Code Phon e Number [facility] [address] [facility] [address] [facility] [address] [place], [place] [address] ELECTROLYTES (05/14/2001 20:58 EST) Pathologist Sig nature Sodium 141 136 - 145 mEq/L [facility] Potassium 4.7 3.5 - 5.0 mEq/L [facility] Chloride 102 96 - 110 mEq/L [facility] CO2 26 24 - 30 mEq/L [facility] Specimen Performing Organization Address [facility] Phon e Number [facility] [address] [place] [address] SERVICES [facility] [address] [place] [address] (ABNORMAL) LIVER FUNCTION TESTS (05/14/2001 20:58 EST) Pathologist Sig nature Albumin 3.9 3.0 - 5.5 g/dl [facility] Total Protein 7.1 6.0 - 8.5 g/dl [facility] Total Alkaline 64 38 - 126 U/L [facility] Phosphatase ALT 24 15 - 75 U/L [facility] AST 19 8 - 50 U/L [facility] Unconjugated Bilirubin 1.9 (H) 0.1 - 1.1 mg/dl [facility] Conjugated Bilirubin 0.1 0.0 - 0.3 mg/dl [facility] B Bilirubin, Total 2.3 (H) 0.2 - 1.3 mg/dl [facility] Specimen Performing Organization Address [facility] Phon e Number [facility] [address] [place] [address] SERVICES [facility] [address] [place] [address] LIPASE (05/14/2001 20:58 EST) Pathologist Sig nature Lipase 25 0 - 210 U/L [facility] Specimen Performing Organization Address City/[facility]/ZIP Code Phon e Number [facility] [address] [place] [address] SERVICES [facility] [address] [place] [address] CREATININE (05/14/2001 20:58 EST) Pathologist Sig nature Creatinine 0.9 0.7 - 1.5 mg/dl [facility] Specimen Performing Organization Address [facility]/ZIP [facility] Phon e Number [facility] [address] [place] [address] SERVICES [facility] [address] [place] [address] (ABNORMAL) HEMAGRAM & DIFF (05/14/2001 20:58 EST) WBC 12.42 (H) 4.0 - 10.4 [facility] K/cmm RBC 5.77 4.36 - 5.78 [facility] M/cmm Hemoglobin 18.0 (H) 13.8 - 17.3 [facility] gm/dl HCT 53.8 (H) 39.5 - 50.2 % [facility] MCV 93 81 - 95 fl [facility] MCH 31.2 27.6 - 33.0 pg [facility] MCHC 33.4 32.8 - 36.4 [facility] gm/dl PLT 237 141 - 320 K/cmm [facility] RDW-CV 12.5 11.8 - 14.1 % [facility] Neutrophils 84 (H) 45.5 - 79.7 % [facility] Bands 3 % [facility] Lymphocytes 5 (L) 15.0 - 46.8 % [facility] Atyp Lymphs 2 % [facility] Monocytes 6 1.8 - 12.0 % [facility] ABS Neutrophils 10.43 (H) 2.20 - 8.85 [facility] K/cmm ABS Bands 0.37 K/cmm [facility] ABS Lymphs 0.62 (L) 1.09 - 3.30 [facility] K/cmm ABS Atyp Lymphs 0.25 K/cmm [facility] ABS Monocytes 0.75 0.1 - 0.8 K/cmm [facility] RBC Morphology Normal [facility] WBC Morphology 1+ Smudge cells [facility] Type of Diff: Manual [facility] Specimen Performing Organization Address City/State/ZIP Code Phon e Number [facility] [address] [place] [address] SERVICES [facility] [address] [place] [address] BUN (05/14/2001 20:58 EST) Pathologist Sig nature BUN 12 10 - 26 mg/dl [facility] Specimen Performing Organization Address City/[facility]/ZIP Code Phon e Number [facility] [address] [place] [address] SERVICES [facility] [address] [place] [address] documented in this encounter Visit Diagnoses Not on filedocumented in this encounter
[2021-09-21 20:13] LABS: HCT 45.1 % (40.0-50.0); HGB 13.9 g/dL (13.5-17.5); MCH 31.2 pg (27.0-33.0); MCHC 30.8 % (32.0-36.0); MCV 101 fL (80-95); MPV 11.1 fL (8.0-11.0); Platelet Count 219 10^3/uL (130-400); RBC 4.45 10^6/uL (4.36-5.78); RDW 13.3 % (11.8-14.1); WBC 8.32 10^3/uL (4.4-10.8)
[2021-09-21 20:30] LABS: Anion Gap 8.8 mmol/L (3-11); BUN 16 mg/dL (7-18); CO2 28.2 mmol/L (21.0-32.0); CREATININE 1.2 mg/dL (0.70-1.30); Calcium 8.3 mg/dL (8.5-10.1); Chloride 105 mmol/L (98-107); Estimated GFR 57.82 (mL/min/1.73m2); Glucose 60 mg/dL (74-106); Potassium 3.6 mmol/L (3.5-5.1); Sodium 142 mmol/L (136-145)
== END 2021-09-21 17:16 | disposition home or self-care (01) ==
LOC: NCHCN 17:15
PROVIDERS: PCP Internal Medicine; Visit Provider Internal Medicine
DX: R03.0 Elevated blood-pressure reading, without diagnosis of hypertension (principal); R63.4 Abnormal weight loss
CPT/HCPCS: 80048; 85027

== ENCOUNTER 2022-10-06 22:22 | Outpatient (REF) | payer MEDICARE, BC, SELFPAY ==
[2022-10-06 21:47] LABS: HCT 44.2 % (40.0-50.0); HGB 14.2 g/dL (13.5-17.5); MCH 31.6 pg (27.0-33.0); MCHC 32.1 % (32.0-36.0); MCV 98 fL (80-95); MPV 11.3 fL (8.0-11.0); Platelet Count 208 10^3/uL (130-400); RBC 4.49 10^6/uL (4.36-5.78); RDW 12.9 % (11.8-14.1); RDW-SD 46.9 fL; WBC 7.16 10^3/uL (4.4-10.8)
[2022-10-06 22:34] LABS: Vitamin D 25 Total 7.3 ng/mL (30-100)
[2022-10-06 22:37] LABS: ALT 14 U/L (16-63); AST 20 U/L (15-37); Albumin 3.7 g/dL (3.4-5.0); Alkaline Phosphatase 77 U/L (46-116); Anion Gap 6.5 mmol/L (3-11); BUN 17 mg/dL (7-18); Bilirubin, Total 1.3 mg/dL (0.2-1.0); CO2 30.5 mmol/L (21.0-32.0); CREATININE 1.3 mg/dL (0.70-1.30); Calcium 8.7 mg/dL (8.5-10.1); Chloride 104 mmol/L (98-107); Estimated GFR 54.17 (mL/min/1.73m2); Glucose 91 mg/dL (74-106); Potassium 3.5 mmol/L (3.5-5.1); Sodium 141 mmol/L (136-145); Total Protein 7.8 g/dL (6.4-8.2); Vitamin B12 496 pg/mL (193-986)
[2022-10-07 19:43] LABS: PSA, Screening 0.5 ng/mL (<=6.5)
== END 2022-10-06 22:23 | disposition home or self-care (01) ==
LOC: NCHCN 22:22
PROVIDERS: PCP Internal Medicine; Visit Provider Internal Medicine
DX: R63.4 Abnormal weight loss (principal); E55.9 Vitamin D deficiency, unspecified; E53.8 Deficiency of other specified B group vitamins; M81.0 Age-related osteoporosis without current pathological fracture; Z12.5 Encounter for screening for malignant neoplasm of prostate
CPT/HCPCS: 80053; 82306; 84153; 85027; 82607

== ENCOUNTER 2022-12-30 10:27 | Outpatient (REF) | payer MEDICARE, BC, SELFPAY ==
[2022-12-30 15:23] LABS: Vitamin D 25 Total 41.9 ng/mL (30-100)
== END 2022-12-30 10:28 | disposition home or self-care (01) ==
LOC: NCHCN 10:27
PROVIDERS: PCP Internal Medicine; Visit Provider Internal Medicine
DX: E55.9 Vitamin D deficiency, unspecified (principal)
CPT/HCPCS: 82306

== ENCOUNTER 2023-10-19 15:28 | Outpatient (REF) | payer MEDICARE, BC, SELFPAY ==
[2023-10-19 20:53] LABS: HCT 46.6 % (40.0-50.0); HGB 14.9 g/dL (13.5-17.5); MCH 31.6 pg (27.0-33.0); MCV 99 fL (80-95); Platelet Count 207 10^3/uL (130-400); RBC 4.72 10^6/uL (4.36-5.78); RDW 13.2 % (11.8-14.1); RDW-SD 48.5 fL; WBC 8.01 10^3/uL (4.4-10.8)
[2023-10-19 21:25] LABS: ALT 12 U/L (16-63); AST 20 U/L (15-37); Albumin 3.7 g/dL (3.4-5.0); Alkaline Phosphatase 67 U/L (46-116); BUN 26 mg/dL (7-18); Bilirubin, Total 1.6 mg/dL (0.2-1.0); CREATININE 1.5 mg/dL (0.70-1.30); Calcium 8.9 mg/dL (8.5-10.1); Chloride 108 mmol/L (98-107); Estimated GFR 45.34 (mL/min/1.73m2); Glucose 92 mg/dL (74-106); Potassium 4.7 mmol/L (3.5-5.1); Sodium 144 mmol/L (136-145); Total Protein 7.8 g/dL (6.4-8.2); Vitamin D 25 Total 45.3 ng/mL (30-100)
== END 2023-10-19 15:29 | disposition home or self-care (01) ==
LOC: NCHCN 15:28
PROVIDERS: PCP Internal Medicine; Visit Provider Internal Medicine
DX: I48.91 Unspecified atrial fibrillation (principal); E55.9 Vitamin D deficiency, unspecified
CPT/HCPCS: 80053; 82306; 85027

== ENCOUNTER 2024-10-24 22:41 | Outpatient (REF) | payer MEDICARE, BC, SELFPAY ==
[2024-10-24 21:59] LABS: HCT 41.1 % (40.0-50.0); MCH 30.9 pg (27.0-33.0); MCHC 31.6 % (32.0-36.0); MCV 98 fL (80-95); MPV 11.3 fL (8.0-11.0); Platelet Count 217 10^3/uL (130-400); RBC 4.21 10^6/uL (4.36-5.78); RDW 13.5 % (11.8-14.1); WBC 7.99 10^3/uL (4.4-10.8)
[2024-10-24 22:11] LABS: ALT 13 U/L (16-63); AST 25 U/L (15-37); Albumin 3.7 g/dL (3.4-5.0); Alkaline Phosphatase 80 U/L (46-116); Anion Gap 8.4 mmol/L (3-11); BUN 26 mg/dL (7-18); Bilirubin, Total 1.4 mg/dL (0.2-1.0); CO2 26.6 mmol/L (21.0-32.0); CREATININE 1.6 mg/dL (0.70-1.30); Calcium 9.5 mg/dL (8.5-10.1); Chloride 108 mmol/L (98-107); Glucose 98 mg/dL (74-106); Potassium 4.7 mmol/L (3.5-5.1); Sodium 143 mmol/L (136-145); Total Protein 7.6 g/dL (6.4-8.2)
[2024-10-24 22:46] LABS: C & S Indicated? No; RBC >50 HPF (0-2)
== END 2024-10-24 22:42 | disposition home or self-care (01) ==
LOC: NCHCN 22:41
PROVIDERS: PCP Internal Medicine; Visit Provider Internal Medicine
DX: I48.91 Unspecified atrial fibrillation (principal); R31.0 Gross hematuria
CPT/HCPCS: 80053; 85027; 81015; 87086

== ENCOUNTER 2024-11-08 00:27 | Outpatient (CLI) | payer MEDICARE, BC, SELFPAY ==
[2024-11-08] MEDS: Omnipaque 350 MG/ML 500 ML BTL-Imaging package 100 ML IJ (11:13)
[2024-11-08] MEDS: Normal Saline - Diluent 50 ML VIAL IJ (11:20)
--- NOTE | 2024-11-08 11:21 | DI.CT_ITS ---
Exam(s) CT ABDOMEN PELVIS WO/W EXAM: CT ABDOMEN PELVIS WO/W CLINICAL HISTORY: Gross hematuria, R31.0, asymptomatic. TECHNIQUE: Imaging Protocol: Axial computed tomography images with coronal and sagittal reformatted images were created and reviewed. Images were performed from the lung bases through the ischial tuberosities before IV contrast and following IV contrast using a 70 second delay, followed by 7 minutes delayed images. CONTRAST MATERIAL: Intravenous: Omnipaque 350 Contrast volume:100 cc Oral: no COMPARISON: No exams were available for comparison FINDINGS: Exam is somewhat limited by motion. Lung Bases: Normal where visualized. Liver: Normal density. No measurable mass. Gallbladder and biliary tract: No biliary dilation. Pancreas: Somewhat atrophic. No abnormal calcifications or inflammatory process. Spleen: Normal. Kidneys: Left kidney is mildly atrophic. No radiodense stones or obstructive uropathy. Small cyst lower pole right kidney. No suspicious masses seen. Adrenal glands: No masses seen. Lymph nodes: Within normal limits. Abdominal Aorta: 4.3 centimeter infrarenal aneurysm. Soft tissues: Unremarkable. Bladder: Diverticula noted at the superolateral lateral aspect the left. 12 millimeter enhancing mass at the right superior bladder.No evidence of calculi. Bowel: Stomach unremarkable. No obstruction or bowel wall thickening. Left lower quadrant ostomy. Peritoneal cavity: No ascites, collection or mesenteric inflammatory response. Bones: Unremarkable mild compression fracture of the L1 vertebral body. Moderate compression of the L2 vertebral body. Reproductive organs: Prostate mildly enlarged. IMPRESSION: 12 millimeter enhancing mass superior right side of the bladder. No suspicious renal mass. No evidence of urinary tract calculi. No evidence of hydronephrosis. 4.3 centimeter infrarenal aortic aneurysm. Unexpected findings RADIATION DOSE DELIVERED: 1,131.88mGy.cm Total DLP DATA REPOSITORY: All CT scans at this facility are submitted to the National Radiology Data Registry (NRDR) Dose Index Registry (DIR) with the [employer] ([employer]). RADIATION OPTIMIZATION: All CT scans at this facility use at least one of these dose optimization techniques: automated exposure control; mA and/or kV adjustment per patient size (includes targeted exams where dose is matched to clinical indication); or iterative reconstruction.
== END 2024-11-08 00:47 ==
PROVIDERS: PCP Internal Medicine; Visit Provider Internal Medicine
DX: R31.0 Gross hematuria (principal); R93.41 Abnormal radiologic findings on diagnostic imaging of renal pelvis, ureter, or bladder
CPT/HCPCS: 74178

== ENCOUNTER 2025-01-11 17:33 | Outpatient (REF) | payer MEDICARE, BC, SELFPAY ==
[2025-01-11 21:07] LABS: HCT 28.2 % (40.0-50.0); HGB 8.2 g/dL (13.5-17.5); MCH 25.0 pg (27.0-33.0); MCHC 29.1 % (32.0-36.0); MCV 86 fL (80-95); MPV 11.6 fL (8.0-11.0); Platelet Count 305 10^3/uL (130-400); RBC 3.28 10^6/uL (4.36-5.78); RDW 16.1 % (11.8-14.1); RDW-SD 51.0 fL; WBC 7.92 10^3/uL (4.4-10.8)
[2025-01-11 21:18] LABS: ALT 12 U/L (16-63); AST 28 U/L (15-37); Albumin 3.6 g/dL (3.4-5.0); Alkaline Phosphatase 65 U/L (46-116); Anion Gap 7.9 mmol/L (3-11); BUN 26 mg/dL (7-18); Bilirubin, Total 1.1 mg/dL (0.2-1.0); CO2 28.1 mmol/L (21.0-32.0); Calcium 9.1 mg/dL (8.5-10.1); Chloride 105 mmol/L (98-107); Estimated GFR 41.70 (mL/min/1.73m2); Glucose 97 mg/dL (74-106); Potassium 4.6 mmol/L (3.5-5.1); Sodium 141 mmol/L (136-145); Total Protein 7.2 g/dL (6.4-8.2)
== END 2025-01-11 17:34 | disposition home or self-care (01) ==
LOC: NCHCN 17:33
PROVIDERS: PCP Internal Medicine; Visit Provider Internal Medicine
DX: Z01.818 Encounter for other preprocedural examination (principal)
CPT/HCPCS: 80053; 85027; 87086